=== PATIENT | male | born 1965 | race Caucasian/White ===

== ENCOUNTER 2022-12-16 12:54 | Inpatient (IN) ==
[2022-12-16] MEDS ORDERED: FAMOTIDINE 20MG IV PUSH 20 MG/5 ML SYR IV STA (12:58)
[2022-12-16] MEDS ORDERED: diphenhydrAMINE 50 MG/ML VIAL IV STA (12:58)
[2022-12-16] MEDS ORDERED: dexAMETHasone**PF** 10 MG/ML VIAL IV ONE (12:58)
[2022-12-16] MEDS ORDERED: SODIUM CHLORIDE 0.9% 1000ML 1,000 ML IV SCH ×2 (13:00→16:45)
[2022-12-16] MEDS ORDERED: SODIUM CHLORIDE 0.9% 1000ML 1,000 ML IV ONE ×2 (13:22→14:24)
--- NOTE | 2022-12-16 13:26 | Emergency Department Note ---
Impression & Plan Anaphylaxis, NOLBERTO (acute kidney injury), Acute hypotension ED Provider Note NAME: BRITTANY GOLDMAN AGE: 57 SEX: M : 1965 ARRIVES VIA: Ambulance INFORMANT: Patient, EMS ED PROVIDER(S): Jerome Mckeon DO CHIEF COMPLAINT: Allergic reaction HPI: The patient is a 57-year-old male who presented to the emergency department for an evaluation of allergic reaction. The patient started a new medication for diabetes last evening. He states he started noticing a rash over his body since last evening. The patient started having worsening symptoms while he was at [employer]. He went to the tent and was given Benadry l. The patient arrived via ambulance. Paramedics did give the patient IV epinephrine prior to arrival for hypotension. The patient states he is very dizzy and lightheaded. The rash is starting to improve at this time. He was also given Benadryl. The patient denies having any headache. He denies having any abdominal pain or vomiting. He denies having any other new foods or new medications. ROS: See above HPI for pertinent positives & negatives. A total of 10 systems reviewed and were otherwise negative. PAST MEDICAL HISTORY: See Below PAST SURGICAL HISTORY: See Below FAMILY HISTORY: See Below SOCIAL HISTORY: See Below HOME MEDICATIONS: See Below ALLERGIES: See Below VITALS: See Below PHYSICAL EXAMINATION: GENERAL: The patient is awake and alert. The patient is somewhat anxious appearing. EYES: The conjunctivae are clear. The pupils are round and reactive. EARS, NOSE, MOUTH AND THROAT: The nose is without any evidence of any deformity. NECK: The neck is nontender and supple. RESPIRATORY: Normal respiratory effort is noted there is no evidence of wheezing rhonchi or rales CARDIOVASCULAR: Regular rate and rhythm noted there no murmurs rubs or gallops normal S1 normal S2. GASTROINTESTINAL: The abdomen is soft. Abdomen is nontender. MUSCULOSKELETAL/EXTREMITIES: There is no evidence of gross deformity full range of motion is noted in the hips and shoulders. SKIN: There is diffuse urticaria noted over the trunk as well as extremities. It blanches easily. NEUROLOGIC: Patient is awake alert and oriented x3 strength is symmetric patellar reflexes are 2+ bilaterally MEDICAL DECISION MAKING: The patient is a 57-year-old male who presented to the emergency department for an evaluation of allergic reaction and anaphylactic type symptoms. The patient started having urticaria last evening. He thought it was secondary to a new diabetes medication he was started on. The patient started having worsening symptoms of dizziness while he was at an outdoor event. 911 was called. The patient received medication for allergic reaction prior to arrival. The patient received epinephrine prior to arrival because of hypotension. I discussed the patient's laboratory and radiographic studies with him. He was found to have a very significant elevation in his creatinine. He states his baseline is usually much lower. The patient was treated with another dose of epinephrine here but also further IV fluid resuscitation. [facility] the [facility] T[facility] Nursing notes reviewed. Prior medical records reviewed Vital Signs: reviewed and remarkable for hypotension. Differential diagnosis: Allergic reaction, anaphylaxis, urticaria, Gunn-Pasquale syndrome, toxic epidermal necrolysis, erythema multiforme, contact dermatitis, cellulitis, as well as other pathologies. ER treatment provided: See below Diagnostics interpreted by me: ECG: EKG was obtained in the emergency department. My interpretation is normal sinus rhythm at 94 bpm. There was no ectopy. There is no acute ST segment abnormalities noted. This was compared to a tracing from January 22, 2001. No specific changes were noted. Cardiac Monitoring: An order was placed for continuous cardiac monitoring. The monitor shows a rate of 94 bpm with sinus rhythm. Laboratory studies: As stated above and show below. Imaging studies: See below. Radiographic imaging was reviewed by myself Consultation(s): I discussed this case with Dayna who is [facility] ED COURSE: Procedures: none Critical Care: I have personally spent greater than 35 minutes of critical care time in the direct management of this patient. This includes bedside care, interpretation of diagnostic studies, and testing, discussion with consultants, patient, and family members, and other required patient management activities. This 35 minutes is in excess of all separately billable procedures. Past Med/Surg History Medical History Diabetes High cholesterol Hypertension Social History Smoking Status: Never smoker Feels Safe at Home: Yes Allergies Allergies Allergy/AdvReac Type Severity Reaction Status Date / Time No Known Allergies Allergy Unverified 01/30/11 19:10 Home Meds Home Medications Medication Instructions Recorded Confirmed Aspirin (Aspirin Tab-Chewable *) 81 mg PO DAILY ##1 06/02/10 Atorvastatin (Lipitor Unknown Dose) 40 mg PO DAILY ##1 06/02/10 Metoprolol Tartrate (Lopressor 25 mg PO BID ##1 06/02/10 Unknown Dose) Metformin HCL (Glucophage *) 1,000 mg PO BID ##0 01/30/11 Results & Data (ED) Vital Signs Vital Signs - 24 hr 12/16/22 13:02 12/16/22 13:03 12/16/22 13:03 Temperature 36.6 C Temperature Source Oral Pulse Rate 101 H 94 H Pulse Rate [Apical] Pulse Rhythm Regular Pulse Rhythm [Apical] Pulse Strength Normal Respiratory Rate 29 H Respiratory Effort / Characteristics Non-Labored Respiratory Depth Normal Respiratory Pattern Regular Blood Pressure 67/42 L Blood Pressure [Right Arm] Blood Pressure Mean 50 Blood Pressure Mean [Right Arm] Pulse Oximetry 99 98 Oxygen Delivery Method Room Air Room Air Sepsis Recent Fever Within 48 Hours No Sepsis New/Unexplained Change in Mental Status N/A Sepsis Action Taken by Nursing No Action Required 12/16/22 13:03 12/16/22 13:44 12/16/22 13:52 Temperature Temperature Source Pulse Rate 97 H Pulse Rate [Apical] 94 H 94 H Pulse Rhythm Pulse Rhythm [Apical] Pulse Strength Respiratory Rate 29 H 18 18 Respiratory Effort / Characteristics Non-Labored Non-Labored Respiratory Depth Normal Normal Respiratory Pattern Regular Regular Blood Pressure Blood Pressure [Right Arm] 72/44 L 73/46 L Blood Pressure Mean Blood Pressure Mean [Right Arm] 53 55 Pulse Oximetry 98 98 99 Oxygen Delivery Method Room Air Room Air Room Air Sepsis Recent Fever Within 48 Hours Sepsis New/Unexplained Change in Mental Status Sepsis Action Taken by Nursing 12/16/22 14:11 12/16/22 14:41 Temperature Temperature Source Pulse Rate Pulse Rate [Apical] 94 H 93 H Pulse Rhythm Pulse Rhythm [Apical] Regular Pulse Strength Respiratory Rate 18 18 Respiratory Effort / Characteristics Non-Labored Spontaneous Respiratory Depth Normal Respiratory Pattern Regular Blood Pressure Blood Pressure [Right Arm] 83/48 L 68/52 L Blood Pressure Mean Blood Pressure Mean [Right Arm] 59 57 Pulse Oximetry 98 97 Oxygen Delivery Method Room Air Room Air Sepsis Recent Fever Within 48 Hours Sepsis New/Unexplained Change in Mental Status Sepsis Action Taken by [facility] Medications Current Medication List: was personally reviewed by me Laboratory Data Attestation: I reviewed the patient's lab results. 12/16/22 13:22 12/16/22 13:22 Lab Results 12/16/22 12/16/22 Range/Units 13:22 13:22 WBC 17.12 H (4.8-10.8) K/ul RBC 5.02 (4.70-6.10) M/uL Hgb 15.5 (14.0-18.0) g/dl Hct 45.4 (42.0-52.0) % MCV 90.4 (80.0-100.0) fL MCH 30.9 (25.0-34.0) pg MCHC 34.1 (32.0-36.0) g/dL RDW Std Deviation 42.0 (36.4-46.3) fL RDW Coeff of Christiano 13.0 (11.5-14.5) % Plt Count 257 (130-400) K/uL MPV 11.9 (9.4-12.4) fL Immature Gran % (Auto) 0.6 % Neut % (Auto) 82.4 % Lymph % (Auto) 11.1 % [place] % (Auto) 4.6 % Eos % (Auto) 1.1 % Baso % (Auto) 0.2 % Neut # (Auto) 14.11 H (1.40-6.50) K/uL Lymph # (Auto) 1.90 (1.2-3.4) K/uL [place] # (Auto) 0.78 H (0.11-0.59) K/uL Eos # (Auto) 0.19 (0-0.50) K/uL Baso # (Auto) 0.03 (0-0.2) K/uL Immature Gran # (Auto) 0.11 (0.01-0.20) K/uL Sodium 136 (136-145) mmol/L Potassium 5.2 H (3.5-5.1) mmol/L Chloride 104 (98-107) mmol/L Carbon Dioxide 19 L (21-32) mmol/L Anion Gap 13 H (3-11) BUN 56 H (6-23) mg/dl Creatinine 2.95 H (0.6-1.4) mg/dl Est Cr Clr Drug Dosing 32.2 ml/min Est GFR ( Amer) 26.2 ml/min Est GFR (Non-Af Amer) 22.6 ml/min BUN/Creatinine Ratio 19.0 (10-20) Glucose 333 H* (70-99(Fasting)) mg/dl Calcium 9.3 (8.6-10.3) mg/dl Total Bilirubin 1.0 (0.2-1.0) mg/dl AST 17 (13-39) U/L ALT 19 (7-52) U/L Alkaline Phosphatase 53 (34-104) U/L Troponin I High Sens 6.2 (0-20) pg/ml Total Protein 6.7 (6.0-8.3) gm/dl Albumin 4.1 (3.4-5.0) gm/dl Globulin 2.6 (2.5-4.0) gm/dl Albumin/Globulin Ratio 1.6 (0.9-2) Administered Medications Sodium Chloride (Nss 1000ml) 1,000 mls @ 999 mls/hr IV .Q1H1M ONE Stop: 12/16/22 15:24 Last Admin: 12/16/22 14:31 Dose: 999 mls/hr Documented By: ANGIE Discontinued Medications Dexamethasone Sodium Phosphate (DexamethasonePf 10 Mg/Ml Vial) 10 mg IV NOW ONE Stop: 12/16/22 12:59 Last Admin: 12/16/22 13:08 Dose: 10 mg Documented By: ANGIE Diphenhydramine HCl (Diphenhydramine 50 Mg/Ml Vial) 25 mg IV NOW STA Stop: 12/16/22 12:59 Last Admin: 12/16/22 13:08 Dose: 25 mg Documented By: ANGIE Epinephrine HCl (Epinephrine Inj 1 Mg/Ml Amp) 0.3 mg IM NOW STA Stop: 12/16/22 13:45 Last Admin: 12/16/22 13:47 Dose: 0.3 mg Documented By: HNB Sodium Chloride (Nss 1000ml) 1,000 mls @ 999 mls/hr IV .Q1H1M [place]ACE Stop: 12/16/22 14:00 Last Infusion: 12/16/22 14:30 Dose: 0 mls/hr Documented By: Admin: 12/16/22 13:08 Dose: 999 mls/hr Documented By: ANGIE Famotidine (Pepcid 20mg Iv Push) 20 mg in 5 mls @ 2.5 mls/min IV NOW STA Stop: 12/16/22 12:59 Last Admin: 12/16/22 13:08 Dose: 2.5 mls/min Documented By: ANGIE Sodium Chloride (Nss 1000ml) 1,000 mls @ 999 mls/hr IV .Q1H1M ONE Stop: 12/16/22 14:22 Last Infusion: 12/16/22 14:30 Dose: 0 mls/hr Documented By: Admin: 12/16/22 13:29 Dose: 999 mls/hr Documented By: ANGIE Imaging Data Attestation: I personally reviewed and interpreted this imaging study as follows: My Impression: 1 view chest x-ray was obtained in the emergency department. My interpretation is no free air or definite infiltrate, final report below. Radiologist's Impression: Chest X-Ray 12/16/22 12:58 SINGLE VIEW CHEST CLINICAL HISTORY: Allergic reaction. FINDINGS: 2 AP, portable, upright chest radiographs are compared to study dated 05/30/2010. The cardiomediastinal silhouette is unremarkable. The lungs and pleu ral spaces are clear. No pneumothorax is seen. The bony thorax is grossly intact. IMPRESSION: No active disease in the chest. ACT 112: Negative or not required by law. Electronically signed by: Mohsen Fernandes M.D. 12/16/2022 2:11 PM Discharge Plan Visit Data Chief Complaint: Allergic Reaction Stated Complaint: ALLERGIC REACTION ED Provider: Jerome Mckeon Discharge Problem: Anaphylaxis, NOLBERTO (acute kidney injury), Acute hypotension Patient Disposition: Being Evaluated by Hospitalist Forms Stand Alone Forms: My [facility] [employer] Prescriptions Prescriptions: No Action Aspirin (Aspirin Tab-Chewable *) 81 MG CHEWABLE TAB 81 mg PO DAILY Qty: 1 Atorvastatin (Lipitor Unknown Dose) tablet 40 mg PO DAILY Qty: 1 Metoprolol Tartrate (Lopressor Unknown Dose) tablet 25 mg PO BID Qty: 1 Metformin HCL (Glucophage *) 1,000 MG tablet 1,000 mg PO BID Qty: 0 Referrals Referrals: Jey Rowley MD [Hospitalist] - Anaphylaxis Qualifiers: Encounter type: initial encounter Qualified Code(s): T78.2XXA - Anaphylactic shock, unspecified, initial encounter
[2022-12-16] MEDS ORDERED: EPINEPHrine INJ 1 MG/ML AMP IM STA (13:44)
[2022-12-16 13:55] LABS: Basophils # (auto) 0.03 K/uL (0-0.2); Basophils % (auto) 0.2 %; Eosinophils # (auto) 0.19 K/uL (0-0.50); Eosinophils % (auto) 1.1 %; Hematocrit (blood only) 45.4 % (42.0-52.0); Hemoglobin 15.5 g/dl (14.0-18.0); Immature Granulocytes # (auto) 0.11 K/uL (0.01-0.20); Immature Granulocytes % (auto) 0.6 %; Lymphocytes % (auto) 11.1 %; Mean Corpuscular Hemoglobin 30.9 pg (25.0-34.0); Mean Corpuscular Hgb Conc 34.1 g/dL (32.0-36.0); Mean Corpuscular Volume 90.4 fL (80.0-100.0); Mean Platelet Volume 11.9 fL (9.4-12.4); Monocytes # (auto) 0.78 K/uL (0.11-0.59); Monocytes % (auto) 4.6 %; Neutrophils # (auto) 14.11 K/uL (1.40-6.50); Neutrophils % (auto) 82.4 %; Platelet Count 257 K/uL (130-400); Red Blood Count 5.02 M/uL (4.70-6.10); White Blood Count 17.12 K/ul (4.8-10.8)
--- NOTE | 2022-12-16 14:13 | XRay Report ---
SINGLE VIEW CHEST CLINICAL HISTORY: Allergic reaction. FINDINGS: 2 AP, portable, upright chest radiographs are compared to study dated 05/30/2010. The cardio mediastinal silhouette is unremarkable. The lungs and pleural spaces are clear. No pneumothorax is se en. The bony thorax is grossly intact. IMPRESSION: No active disease in the chest. ACT 112: Negative or not required by law. Electronically signed by: Mohsen Fernandes M.D. 12/16/2022 2:11 PM
[2022-12-16 14:18] LABS: Albumin Globulin Ratio 1.6 (0.9-2); Albumin Level 4.1 gm/dl (3.4-5.0); Calcium 9.3 mg/dl (8.6-10.3); Creatinine Clr Calc Pharmacy 32.2 ml/min; Est GFR (African American) 26.2 ml/min; Est GFR (Non-African American) 22.6 ml/min; Globulin 2.6 gm/dl (2.5-4.0); Potassium 5.2 mmol/L (3.5-5.1); Total Protein 6.7 gm/dl (6.0-8.3); Troponin I High Sensitivity 6.2 pg/ml (0-20)
--- NOTE | 2022-12-16 14:21 | Electrocardiogram Report ---
Test Reason : Blood Pressure : / mmHG Vent. Rate : 094 BPM Atrial Rate : 094 BPM P-R Int : 162 ms QRS Dur : 068 ms QT Int : 350 ms P-R-T Axes : 066 063 059 degrees QTc Int : 437 ms Normal sinus rhythm Low voltage QRS Abnormal ECG When compared with ECG of 22-JAN-2001 12:18, Nonspecific T wave abnormality no longer evident in Inferior leads Confirmed by Michael Dean ([id number]) on 12/16/2022 2:21:00 PM Referred By: Confirmed By:Qasim Dean
--- NOTE | 2022-12-16 14:57 | History & Physical Report ---
Date of Service December 16, 2022 Assessment & Plan (1) Anaphylaxis: Plan: Patient is 57 y/o M with PMH HTN, dyslipidemia, DM II, BLE edema, hypothyroidism presented to ER with c/o hives started last night after taking first dose of Mounjaro yesterday. No SOB or angioedema Dizzy, diaphoretic pre-hospital and was given IV Benadryl, IV epinephrine. Upon ER arrival patient noted to have diffuse urticaria and was hypotensive. Was given epinephrine 0.3mg IM, 25mg IV Benadryl, IV Pepcid, IV decadron, 3L NSS. SBPs from 60's up to 80's. Pulse in 90's. No hypoxia, no wheezing. Urticaria resolving Anaphylaxis reaction secondary to Mounjaro Allergy list updated with Mounjaro No further Mounjaro Patient's BP's remain low in ER after fluid resuscitation with 3L NSS. Patient asymptomatic and mentating well. Additional IM epinephrine given Admit ICU for further management Hold home lisinopril and Lasix as hypotensive and with NOLBERTO Lab informed initial lactic acid error, will have redrawn and follow (2) NOLBERTO (acute kidney injury): Plan: Cr: 2.9. Was 1.4 on 12/11/22 after holding metformin, Jardiance, Lasix for one week. Cr: 2.1 on 12/02/22 with prior baseline of 1.0. Hold lisinopril, Lasix, home glycemic agents BMP in am Nephrology consult (3) Neck pain: Plan: Posterior neck pain x 1-2 months Consider imaging when patient more stable (4) Diabetes mellitus, type II: Plan: A1c: 8.1 on 12/02/22 Glucose: 333 Hold home meds Glycemic management per ICU. May need to consider insulin drip (5) High cholesterol: Plan: On atorvastatin (6) Hypertension: Plan: Currently hypotensive Hold home lisinopril (7) Leg edema: Plan: Hold home lasix with hypotension and NOLBERTO (8) Hypothyroidism: Plan: On levothyroxine admit ICU Full Code as per discussion with pt Follows with Dr Regina Marshall for routine care Pt was seen and care coordinated with Dr Tracy. See addendum I spent a total of 85 minutes reviewing notes, outpatient records, labs, medication, coordinating, documenting and providing care for this patient excluding time spent in the performance of separately billed services. History of Present Illness Chief Complaint: hives Primary Care Provider: Regina Marshall DO Patient is 57 y/o M with PMH HTN, dyslipidemia, DM II, BLE edema, hypothyroidism presented to ER with c/o hives. History obtained from patient as well as outpatient chart review. Patient has been on Ozempic since 02/2023 however reports that pharmacy was unable to get medication in stock so he was started on Mounjaro. Took first dose of Mounjaro last evening. States around midnight started with diffuse pruritus and hives. He states took 50mg Benadryl orally. This morning still had hives and itching. This morning he went to . States as was travelling to [place] noticed increased hives. Reports that once arrived he went to first aid tent and was given 50mg Benadryl orally. Patient states started to walk around and became diaphoretic and dizzy. EMS was called. EMS reported BP: 67/42. It is reported patient was given 50mg IV Benadryl, IV epinephrine and IVF. Upon ER arrival patient noted to have diffuse urticaria and was hypotensive. Was given epinephrine 0.3mg IM, 25mg IV Benadryl, 3L NSS. SBPs from 60's up to 80's. Patient denies any wheezing, SOB, chest pain, nausea, vomiting, abdominal pain, edema of lips or tongue, dysphagia. Patient also concerned about posterior neck pain for past 1-2 months. Has been taking Tylenol daily for 1 month for pain with limited relief. Denies heavy lifting or injury. reports chronic BLE edema for which he is on Lasix. Patient denies any increased edema. He had outpatient labs 12/02/22 and had creatinine of 2.1. His metformin, Jardiance, Lasix were held for one week. Patient reports resumed medications on 12/12/22. Outpatient chart reviewed and 12/11/22 Cr: 1.4. Denies fev er/chills, diarrhea, constipation, DIETRICH, syncope, vision changes, orthopnea, palpitations, cough, sore throat, choking, otalgia, rhinorrhea, abdominal pain, paresthesias, extremity weakness, rashes, urinary symptoms. Allergies Allergy/AdvReac Type Severity Reaction Status Date / Time tirzepatide [From Selena] Allergy Severe Anaphylaxis Verified 12/16/22 16:06 Home Medications Medication Instructions Recorded Confirmed Type aspirin 81 mg tablet,delayed 81 mg PO DAILY 12/16/22 12/16/22 History release atorvastatin 40 mg tablet 40 mg PO PM 12/16/22 12/16/22 History empagliflozin 25 mg tablet 25 mg PO DAILY 12/16/22 12/16/22 History (Jardiance) furosemide 40 mg tablet 40 mg PO BID 12/16/22 12/16/22 History glyburide 5 mg tablet 10 mg PO BIDM 12/16/22 12/16/22 History levothyroxine 100 mcg tablet 100 mcg PO DAILY 12/16/22 12/16/22 History lisinopril 20 mg tablet 20 mg PO DAILY 12/16/22 12/16/22 History metformin 1,000 mg tablet 1,000 mg PO BID 12/16/22 12/16/22 History potassium chloride 20 mEq 20 meq PO DAILY 12/16/22 12/16/22 History tablet,extended release(part/cryst) repaglinide 2 mg tablet 4 mg PO TIDM 12/16/22 12/16/22 History tirzepatide 12.5 mg/0.5 mL 12.5 mg subcut WK 12/16/22 12/16/22 History subcutaneous pen injector (Selena) Past Med/Surg History Medical History Diabetes Diabetes mellitus, type II High cholesterol Hypertension Hypothyroidism Leg edema Surgical History History of cardiac catheterization History of esophagogastroduodenoscopy History of tonsillectomy and adenoidectomy History of umbilical hernia repair Family History Other Diabetes Heart disease Social History Smoking Status: Never smoker Hx Alcohol Use: No Hx Substance Use: No Preferred Language: Samoan 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 Beliefs That Will Affect Care: None Current Living Situation: Alone Feels Safe at Home: Yes Review of Systems Review of Systems: All systems reviewed & are unremarkable except as noted in HPI & below Physical Exam Physical Exam: General: no acute distress, WDWN Head: normocephalic, atraumatic Eyes: conjunctiva non-injected, anicteric ENT: normal inspection external ears, nose, mucous membranes moist Neck: supple, trachea midline, +tenderness to palpation bilateral trapezius musculature, +decreased active ROM to lateral bending and flexion and extension Lungs: clear, no respiratory distress, no wheezing/rhonchi/rales CV: RRR, no murmur, no pretibial edema Abd: normal BS, soft, non-tender Ext: no cyanosis, no calf tenderness Neuro: A&O x 3, no focal deficits noted, normal affect Skin: warm, dry, +fading urticaria noted to back, abdomen, bilateral upper and lower extremities Results & Data Results & Data Vital Signs (Past 12 Hours) Vital Signs Temp Pulse Pulse Resp BP BP Pulse Ox 12/16/22 14:41 93 H 18 68/52 L 97 12/16/22 14:11 94 H 18 83/48 L 98 12/16/22 13:52 94 H 18 73/46 L 99 12/16/22 13:44 94 H 18 72/44 L 98 12/16/22 13:03 97 H 29 H 98 12/16/22 13:03 98 12/16/22 13:03 36.6 C 94 H 29 H 67/42 L 99 12/16/22 13:02 101 H O2 Del Method 12/16/22 14:41 Room Air 12/16/22 14:11 Room Air 12/16/22 13:52 Room Air 12/16/22 13:44 Room Air 12/16/22 13:03 Room Air 12/16/22 13:03 Room Air 12/16/22 13:03 Room Air 12/16/22 13:02 Laboratory Results Short CBC 12/16/22 Range/Units 13:22 WBC 17.12 H (4.8-10.8) K/ul Hgb 15.5 (14.0-18.0) g/dl Hct 45.4 (42.0-52.0) % Plt Count 257 (130-400) K/uL BMP 12/16/22 13:22 Sodium 136 Potassium 5.2 H Chloride 104 Carbon Dioxide 19 L BUN 56 H Creatinine 2.95 H Glucose 333 H* Calcium 9.3 Liver Function 12/16/22 Range/Units 13:22 Total Bilirubin 1.0 (0.2-1.0) mg/dl AST 17 (13-39) U/L ALT 19 (7-52) U/L Alkaline Phosphatase 53 (34-104) U/L Albumin 4.1 (3.4-5.0) gm/dl Urine 12/16/22 Range/Units 15:44 Urine Color Yellow Urine Appearance Clear (Clear) Urine pH 5.0 (4.5-7.5) Ur Specific [place] 1.013 (1.000-1.030) Urine Protein Negative (Negative) Urine Glucose (UA) 3+ H (Negative) Diagnostic Findings Chest X-Ray 12/16/22 12:58 SINGLE VIEW CHEST CLINICAL HISTORY: Allergic reaction. FINDINGS: 2 AP, portable, upright chest radiographs are compared to study dated 05/30/2010. The cardiomediastinal silhouette is unremarkable. The lungs and pleural spaces are clear. No pneumothorax is seen. The bony thorax is grossly intact. IMPRESSION: No active disease in the chest. ACT 112: Negative or not required by law. Electronically signed by: Mohsen Fernandes M.D. 12/16/2022 2:11 PM Supervising Physician Co-Signing Physician Notes ATTENDING ADDENDUM to H&P: 57 yo diabetic man presents with anaphylactic shock in response to starting a new GLP-1 agonist, Mounjaro, yesterday afternoon. He was previously on Ozempic for at least the past year and switched as a result of low nationwide supply. He also was counseled with worsening renal dysfunction (normal baseline creatinine 0.9 in Jul 02 to 2.1 on 12/04/22)to hold his metformin, jardiance, lasix and repeat creatinine in one week. He did this and creatinine improved to 1.4. He started his first Mounjaro injection yesterday afternoon and awoke wtih hives last night around midnight. He reports taking nothing but walking up every hour with significant itching. He then went to the local agriculture fair this morning with worsening hives on the way there. He stopped by the local first aid tent and was able to take benadryl. After waiting an hour, he felt poorly, was pale and had an episode of hypotensive syncope when EMS was called. EMS gave IV epinephrine for hypotension. The patient was reporting persistent lightheadedness, but denies wheezing or shortness of breath, throat or tongue swelling, chest or abdominal pain, vomiting or headache. In the ER he was given 3L of IVF, diphenhydramine 25mg IV, dexamethasone 10mg IV, famotidine 20mg IV and an additional intramuscular epinephrine 0.3mg injection. No h/o allergic reaction. On exam BP is 89/62 (after treatment noted above). HR 91, RR 19, oxygenating 99% on RA and afebrile. He is mentating clearly and is WNWD. He has no conversational dyspnea or wheezing on pulmonary auscultation. No other adventitial sounds present. CV exam reveals S1/2 heard without murmurs, and extremities are warm and well perfused. Skin is warm and dry with residual erythema/hives on his back>posterior legs> abdomen. He also reports persistent hives in his groin but this was not visualized. Abdomen was soft, NTND. No gross focal neuromuscular deficits were noted. On workup creatinine is 2.95 as noted above with baseline 0.9 in Jun 2022 per outpatient record review. Glucose is elevated to 333 today and he has been off metformin and Jardiance recently. A1C is 8.1 in November 29 reflecting suboptimal glucose control. Potassium has been elevated since renal function began to decline and is elevated today, 5.2. Leukocytosis is present 17K.Random cortisol is 5.5 and tryptase is pending. (NOTE: contacted by lab that the lactate and cortisol was incorrect. Decadron has already been given today. Will defer the decision to redraw these levels to ICU team.) 1. Anaphylactic shock 2/2 GLP-1 agonist 2. Acute renal failure 3. Hyperglycemia in uncontrolled DMII After resuscitation efforts in the ER today along with additional epinephrine, the patient remains hypotensive. Consulting ICU for consideration of epinephrine drip and treatment of additional worsening comorbidities. Cont IVF and supportive care. Management of hyperglycemia and acute renal failure as noted on H&P. Agree with nephrology consultation. ADDENDUM: BP updated and falling to 68/51 around 4:15pm. Came back down to see patient who was still mentating clearly, denied shortness of breath or wheezing and had no worsening itching or hives. Placed in T-noguera position and BP on bilateral arms was 72/37 (R) and 70/40 (L). I communicated this with the supervisor corduroy cutting and ER physician, as he was still in A3, and ordered repeat dose of epi 0.3mg IM. Additional 500cc bolus ordered. Monitoring for response with repeat BP 85/43 with bolus running. HR is 81 and still oxygenating 96% on room air. Contacted machine records units supervisor to assist with getting patient a bed assigned. I spent a total [id number] coordinating, documenting, and providing critical care for this patient excluding time spent in the performance of separately bill ed services. DO Demarcus (1) Anaphylaxis Encounter type: initial encounter Qualified Code(s): T78.2XXA - Anaphylactic shock, unspecified, initial encounter
[2022-12-16 15:29] LABS: C Reactive Protein 1.11 mg/dl (0-0.5)
--- NOTE | 2022-12-16 15:34 | Communication Note ---
Date of Service: December 16, 2022 ATTENDING ADDENDUM to H&P: 57 yo diabetic man presents with anaphylactic shock in response to starting a new GLP-1 agonist, Mounjaro, yesterday afternoon. He was previously on Ozempic for at least the past year and switched as a result of low nationwide supply. He also was counseled with worsening renal dysfunction (normal baseline creatinine 0.9 in Jul 02 to 2.1 on 12/04/22)to hold his metformin, jardiance, lasix and repeat creatinine in one week. He did this and creatinine improved to 1.4. He started his first Mounjaro injection yesterday afternoon and awoke wtih hives last night around midnight. He reports taking nothing but walking up every hour wiht significant itching. He then went to the local [employer] fair this morning with worsening hives on the way there. He stopped by the local first aid tent and was able to take benadryl. After waiting an hour, he felt poorly, was pale and had an episode of hypotensive syncope when EMS was called. EMS gave IV epinephrine for hypotension. The patient was reporting persistent lightheadedness, but denies wheezing or shortness of breath, throat or tongue swelling, chest or abdominal pain, vomiting or headache. In the ER he was given 3L of IVF, diphenhydramine 25mg IV, dexamethasone 10mg IV, famotidine 20mg IV and an additional intramuscular epinephrine 0.3mg injection. No h/o allergic reaction. On exam BP is 89/62 (after treatment noted above). HR 91, RR 19, oxygenating 99% on RA and afebrile. He is mentating clearly and is WNWD. He has no conversational dyspnea or wheezing on pulmonary auscultation. No other adventitial sounds present. CV exam reveals S1/2 heard without murmurs, and extremities are warm and well perfused. Skin is warm and dry with residual erythema/hives on his back>posterior legs> abdomen. He also reports persistent hives in his groin but this was not visualized. Abdomen was soft, NTND. No gross focal neuromuscular deficits were noted. On workup creatinine is 2.95 as noted above with baseline 0.9 in Jun 2022 per outpatient record review. Glucose is elevated to 333 today and he has been off metformin and Jardiance recently. A1C is 8.1 in November 29 reflecting suboptimal glucose control. Potassium has been elevated since renal function began to decline and is elevated today, 5.2. Leukocytosis is present 17K.Random cortisol is 5.5 and tryptase is pending. (NOTE: contacted by lab that the lactate and cortisol was incorrect. Decadron has already been given today. Will defer the decision to redraw these levels to ICU team.) 1. Anaphylactic shock 2/2 GLP-1 agonist 2. Acute renal failure 3. Hyperglycemia in uncontrolled DMII After resuscitation efforts in the ER today along with additional epinephrine, the patient remains hypotensive. Consulting ICU for consideration of epinephrine drip and treatment of additional worsening comorbidities. Cont IVF and supportive care. Management of hyperglycemia and acute renal failure as noted on H&P. Agree with nephrology consultation. ADDENDUM: BP updated and falling to 68/51 around 4:15pm. Came back down to see patient who was still mentating clearly, denied shortness of breath or wheezing and had no worsening itching or hives. Placed in T-noguera position and BP on bilateral arms was 72/37 (R) and 70/40 (L). I communicated this with the posting machine operator and ER physician, as he was still in A3, and ordered repeat dose of epi 0.3mg IM. Additional 500cc bolus ordered. Monitoring for response with repeat BP 85/43 with bolus running. HR is 81 and still oxygenating 96% on room air. Contacted live ammunition inspector to assist with getting patient a bed assigned. I spent a total [id number] coordinating, documenting, and providing critical care for this patient excluding time spent in the performance of separately billed services. DO Demarcus
[2022-12-16 16:21] LABS: Appearance Urine Clear (Clear); Bilirubin Urine Negative (Negative); Blood Urine Negative (Negative); Color Urine Yellow; Glucose Urine UA 3+ (Negative); Ketones Urine Negative (Negative); Leukocyte Esterase Urine Negative (Negative); Nitrite Urine Negative (Negative); Protein Urine Negative (Negative); Specific Gravity Urine 1.013 (1.000-1.030); Urobilinogen Urine Negative (Negative)
[2022-12-16] MEDS ORDERED: DEXTROSE 50% 50 ML SYRINGE IV PRN (16:29)
[2022-12-16] MEDS ORDERED: GLUCOSE 10 TAB/TUBE PO PRN (16:29)
[2022-12-16] MEDS ORDERED: CARBOHYDRATES FOR HYPOGLYCEMIA PO PRN (16:29)
[2022-12-16] MEDS ORDERED: GLUCAGON FOR INJ 1 MG VIAL SQ PRN (16:29)
[2022-12-16] MEDS ORDERED: GLUCOSE 40% GEL 15 GM TUBE PO PRN (16:29)
[2022-12-16] MEDS ORDERED: SODIUM CHLORIDE 0.9% 1000ML 2,000 ML IV ONE (16:31)
--- NOTE | 2022-12-16 16:31 | Critical Care Consultation ---
Date of Consultation December 16, 2022 Assessment & Plan (1) Anaphylaxis: (2) NOLBERTO (acute kidney injury): (3) Hyperkalemia: Plan Impression: 57-year-old male with diabetes presenting with potential anaphylactic reaction. The itching and hives have resolved however he has acute kidney injury and low blood pressure. Recommendations: 1. Anaphylactoid reaction: Continue as needed IM epinephrine. If this fails to resolve his blood pressure issues, consideration for an epinephrine infusion may be appropriate however the patient is relatively asymptomatic and not tachycardic at this point in time. 2. Acute kidney injury: Suspect a degree of volume depletion. His elevated blood glucose would also argue for potential volume depletion and potential element of hyperosmolar nonketotic state. Continue aggressive IV fluids with normal saline. Repeat BMP later this afternoon given his hyperkalemia. 3. Diabetes: The patient may have a component of DKA versus hyperosmolar nonketotic state. Will check blood gas. Patient may benefit from a short-term insulin infusion especially given his hyperkalemia. 4. Patient has a history of hypertension and using lisinopril in the setting of acute renal failure may be exacerbating these issues. His metformin may also be causing some degree of lactic acidosis. Will check serum lactate. Continue his Synthroid but will hold additional diuretics. Patient's overall condition is guarded. Will see how he responds to the above i nterventions. Additional recommendations will be based on clinical response. A total of 45 min CC time evaluating and managing patient. History of Present Illness History of Present Illness Asked by hospitalist to assist in evaluation and management of this patient with presumed anaphylactic reaction to Mounjaro and persistent hypotension. History is obtained from discussion with the patient as well as review electronic medical record. Patient is a 57-year-old male with a history of diabetes. He states he started Mounjaro yesterday and developed hives last night. He took Benadryl yesterday evening. He was given additional Benadryl this morning. He became diaphoretic and dizzy and EMS reported low blood pressure. He was brought to the emergency room and was given IM epinephrine and Benadryl and saline. He was noted to have a mild acute kidney injury. He denies fevers chills or night sweats. He states the rash has improved and he is no longer itching. He is not having any issues with swallowing chewing or sores in his mouth. He did receive 1 dose of dexamethasone in the emergency room and has had a total of 3 L of crystalloid. He does not report a prior history of allergic reactions that he is aware of. Allergies Allergy/AdvReac Type Severity Reaction Status Date / Time tirzepatide [From Selena] Allergy Severe Anaphylaxis Verified 12/16/22 16:06 Home Medications Medication Instructions Recorded Confirmed Type aspirin 81 mg tablet,delayed 81 mg PO DAILY 12/16/22 12/16/22 History release atorvastatin 40 mg tablet 40 mg PO PM 12/16/22 12/16/22 History empagliflozin 25 mg tablet 25 mg PO DAILY 12/16/22 12/16/22 History (Jardiance) furosemide 40 mg tablet 40 mg PO BID 12/16/22 12/16/22 History glyburide 5 mg tablet 10 mg PO BIDM 12/16/22 12/16/22 History levothyroxine 100 mcg tablet 100 mcg PO DAILY 12/16/22 12/16/22 History lisinopril 20 mg tablet 20 mg PO DAILY 12/16/22 12/16/22 History metformin 1,000 mg tablet 1,000 mg PO BID 12/16/22 12/16/22 History potassium chloride 20 mEq 20 meq PO DAILY 12/16/22 12/16/22 History tablet,extended release(part/cryst) repaglinide 2 mg tablet 4 mg PO TIDM 12/16/22 12/16/22 History tirzepatide 12.5 mg/0.5 mL 12.5 mg subcut WK 12/16/22 12/16/22 History subcutaneous pen injector (Selena) Patient History Medical History Diabetes High cholesterol Hypertension Social History Smoking Status: Never smoker Feels Safe at Home: Yes Review of Systems Review of Systems: Please refer to admission H&P. No additions or deletions Physical Exam Constitutional: WD/WN, vitals as above Neck: trachea midline, no thyromegaly Respiratory: normal respiratory effort, lungs clear to auscultation Cardiovascular: RRR, no murmur, no edema Gastrointestinal (Abdomen): normal bowel sounds, soft, nontender, no hepa tosplenomegaly Musculoskeletal: Extremities: extremities normal to inspection Skin: no rashes, warm and dry Neurologic: Nonfocal exam Lymphatic: no cervical lymphadenopathy Results & Data Results & Data Vital Signs (Past 12 Hours) Vital Signs Temp Pulse Pulse Resp BP BP Pulse Ox 12/16/22 16:15 97 H 17 12/16/22 16:15 68/51 L 12/16/22 16:10 96 H 12 12/16/22 16:10 82/48 L 12/16/22 16:05 91 H 20 12/16/22 16:05 79/47 L 12/16/22 16:00 93 H 15 12/16/22 16:00 81/50 L 12/16/22 15:55 94 H 12 12/16/22 15:55 83/49 L 12/16/22 15:50 90 14 12/16/22 15:50 83/57 L 12/16/22 15:45 91 H 13 12/16/22 15:45 74/53 L 12/16/22 15:44 91 H 19 12/16/22 15:44 89/54 L 12/16/22 15:35 94 H 12 99 12/16/22 15:35 92/51 L 12/16/22 15:30 95 H 18 12/16/22 15:30 89/54 L 12/16/22 15:25 90 14 99 12/16/22 15:25 94/66 L 12/16/22 15:20 90 12 99 12/16/22 15:20 84/62 L 12/16/22 15:15 91 H 16 93 12/16/22 15:15 87/57 L 12/16/22 15:10 92 H 14 99 12/16/22 15:10 92/64 L 12/16/22 15:06 91 H 19 99 12/16/22 15:06 89/62 L 12/16/22 15:03 98 H 20 12/16/22 15:03 86/61 L 12/16/22 15:00 94 H 13 99 12/16/22 15:00 96/81 L 12/16/22 14:55 95 H 25 H 99 12/16/22 14:55 85/37 L 12/16/22 14:50 81/49 L 12/16/22 14:50 95 H 3 L 96 12/16/22 14:45 95 H 4 L 93 12/16/22 14:45 81/45 L 12/16/22 14:41 92 H 15 94 12/16/22 14:41 68/52 L 12/16/22 14:30 96 H 17 99 12/16/22 14:30 67/46 L 12/16/22 14:25 97 H 18 98 12/16/22 14:25 71/42 L 12/16/22 14:20 96 H 7 L 99 12/16/22 14:20 77/42 L 12/16/22 14:15 97 H 4 L 98 12/16/22 14:15 80/49 L 12/16/22 14:10 83/48 L 12/16/22 14:10 96 H 7 L 99 12/16/22 14:05 95 H 12 99 12/16/22 14:05 79/44 L 12/16/22 14:00 94 H 17 12/16/22 14:00 72/45 L 12/16/22 13:55 93 H 9 L 99 12/16/22 13:55 75/45 L 12/16/22 13:52 73/46 L 12/16/22 13:52 94 H 17 99 12/16/22 13:47 91 H 18 12/16/22 13:47 75/35 L 12/16/22 13:45 95 H 23 12/16/22 13:40 72/44 L 12/16/22 13:40 94 H 20 12/16/22 13:35 94 H 16 97 12/16/22 13:35 77/40 L 12/16/22 13:30 98 H 23 99 12/16/22 13:30 71/45 L 12/16/22 13:25 99 H 23 99 12/16/22 13:25 84/45 L 12/16/22 13:20 98 H 16 100 12/16/22 13:20 76/46 L 12/16/22 13:15 98 H 19 99 12/16/22 13:15 75/48 L 12/16/22 13:10 68/43 L 12/16/22 13:10 98 H 23 98 12/16/22 13:05 97 H 22 99 12/16/22 13:05 77/46 L 12/16/22 13:01 95 H 20 12/16/22 13:01 67/42 L 12/16/22 14:41 93 H 18 68/52 L 97 12/16/22 14:11 94 H 18 83/48 L 98 12/16/22 13:52 94 H 18 73/46 L 99 12/16/22 13:44 94 H 18 72/44 L 98 12/16/22 13:03 97 H 29 H 98 12/16/22 13:03 98 12/16/22 13:03 36.6 C 94 H 29 H 67/42 L 99 12/16/22 13:02 101 H O2 Del Method 12/16/22 16:15 12/16/22 16:15 12/16/22 16:10 12/16/22 16:10 12/16/22 16:05 12/16/22 16:05 12/16/22 16:00 12/16/22 16:00 12/16/22 15:55 12/16/22 15:55 12/16/22 15:50 12/16/22 15:50 12/16/22 15:45 12/16/22 15:45 12/16/22 15:44 12/16/22 15:44 12/16/22 15:35 12/16/22 15:35 12/16/22 15:30 12/16/22 15:30 12/16/22 15:25 12/16/22 15:25 12/16/22 15:20 12/16/22 15:20 12/16/22 15:15 12/16/22 15:15 12/16/22 15:10 12/16/22 15:10 12/16/22 15:06 12/16/22 15:06 12/16/22 15:03 12/16/22 15:03 12/16/22 15:00 12/16/22 15:00 12/16/22 14:55 12/16/22 14:55 12/16/22 14:50 12/16/22 14:50 12/16/22 14:45 12/16/22 14:45 12/16/22 14:41 12/16/22 14:41 12/16/22 14:30 12/16/22 14:30 12/16/22 14:25 12/16/22 14:25 12/16/22 14:20 12/16/22 14:20 12/16/22 14:15 12/16/22 14:15 12/16/22 14:10 12/16/22 14:10 12/16/22 14:05 12/16/22 14:05 12/16/22 14:00 12/16/22 14:00 12/16/22 13:55 12/16/22 13:55 12/16/22 13:52 12/16/22 13:52 12/16/22 13:47 12/16/22 13:47 12/16/22 13:45 12/16/22 13:40 12/16/22 13:40 12/16/22 13:35 12/16/22 13:35 12/16/22 13:30 12/16/22 13:30 12/16/22 13:25 12/16/22 13:25 12/16/22 13:20 12/16/22 13:20 12/16/22 13:15 12/16/22 13:15 12/16/22 13:10 12/16/22 13:10 12/16/22 13:05 12/16/22 13:05 12/16/22 13:01 12/16/22 13:01 12/16/22 14:41 Room Air 12/16/22 14:11 Room Air 12/16/22 13:52 Room Air 12/16/22 13:44 Room Air 12/16/22 13:03 Room Air 12/16/22 13:03 Room Air 12/16/22 13:03 Room Air 12/16/22 13:02 Critical Care Results & Data Vital Signs (Past 12 Hours) Vital Signs Temp Pulse Pulse Resp BP BP Pulse Ox 12/16/22 16:15 97 H 17 12/16/22 16:15 68/51 L 12/16/22 16:10 96 H 12 12/16/22 16:10 82/48 L 12/16/22 16:05 91 H 20 12/16/22 16:05 79/47 L 12/16/22 16:00 93 H 15 12/16/22 16:00 81/50 L 12/16/22 15:55 94 H 12 12/16/22 15:55 83/49 L 12/16/22 15:50 90 14 12/16/22 15:50 83/57 L 12/16/22 15:45 91 H 13 12/16/22 15:45 74/53 L 12/16/22 15:44 91 H 19 12/16/22 15:44 89/54 L 12/16/22 15:35 94 H 12 99 12/16/22 15:35 92/51 L 12/16/22 15:30 95 H 18 12/16/22 15:30 89/54 L 12/16/22 15:25 90 14 99 12/16/22 15:25 94/66 L 12/16/22 15:20 90 12 99 12/16/22 15:20 84/62 L 12/16/22 15:15 91 H 16 93 12/16/22 15:15 87/57 L 12/16/22 15:10 92 H 14 99 12/16/22 15:10 92/64 L 12/16/22 15:06 91 H 19 99 12/16/22 15:06 89/62 L 12/16/22 15:03 98 H 20 12/16/22 15:03 86/61 L 12/16/22 15:00 94 H 13 99 12/16/22 15:00 96/81 L 12/16/22 14:55 95 H 25 H 99 12/16/22 14:55 85/37 L 12/16/22 14:50 81/49 L 12/16/22 14:50 95 H 3 L 96 12/16/22 14:45 95 H 4 L 93 12/16/22 14:45 81/45 L 12/16/22 14:41 92 H 15 94 12/16/22 14:41 68/52 L 12/16/22 14:30 96 H 17 99 12/16/22 14:30 67/46 L 12/16/22 14:25 97 H 18 98 12/16/22 14:25 71/42 L 12/16/22 14:20 96 H 7 L 99 12/16/22 14:20 77/42 L 12/16/22 14:15 97 H 4 L 98 12/16/22 14:15 80/49 L 12/16/22 14:10 83/48 L 12/16/22 14:10 96 H 7 L 99 12/16/22 14:05 95 H 12 99 12/16/22 14:05 79/44 L 12/16/22 14:00 94 H 17 12/16/22 14:00 72/45 L 12/16/22 13:55 93 H 9 L 99 12/16/22 13:55 75/45 L 12/16/22 13:52 73/46 L 12/16/22 13:52 94 H 17 99 12/16/22 13:47 91 H 18 12/16/22 13:47 75/35 L 12/16/22 13:45 95 H 23 12/16/22 13:40 72/44 L 12/16/22 13:40 94 H 20 12/16/22 13:35 94 H 16 97 12/16/22 13:35 77/40 L 12/16/22 13:30 98 H 23 99 12/16/22 13:30 71/45 L 12/16/22 13:25 99 H 23 99 12/16/22 13:25 84/45 L 12/16/22 13:20 98 H 16 100 12/16/22 13:20 76/46 L 12/16/22 13:15 98 H 19 99 12/16/22 13:15 75/48 L 12/16/22 13:10 68/43 L 12/16/22 13:10 98 H 23 98 12/16/22 13:05 97 H 22 99 12/16/22 13:05 77/46 L 12/16/22 13:01 95 H 20 12/16/22 13:01 67/42 L 12/16/22 14:41 93 H 18 68/52 L 97 12/16/22 14:11 94 H 18 83/48 L 98 12/16/22 13:52 94 H 18 73/46 L 99 12/16/22 13:44 94 H 18 72/44 L 98 12/16/22 13:03 97 H 29 H 98 12/16/22 13:03 98 12/16/22 13:03 36.6 C 94 H 29 H 67/42 L 99 12/16/22 13:02 101 H O2 Del Method 12/16/22 16:15 12/16/22 16:15 12/16/22 16:10 12/16/22 16:10 12/16/22 16:05 12/16/22 16:05 12/16/22 16:00 12/16/22 16:00 12/16/22 15:55 12/16/22 15:55 12/16/22 15:50 12/16/22 15:50 12/16/22 15:45 12/16/22 15:45 12/16/22 15:44 12/16/22 15:44 12/16/22 15:35 12/16/22 15:35 12/16/22 15:30 12/16/22 15:30 12/16/22 15:25 12/16/22 15:25 12/16/22 15:20 12/16/22 15:20 12/16/22 15:15 12/16/22 15:15 12/16/22 15:10 12/16/22 15:10 12/16/22 15:06 12/16/22 15:06 12/16/22 15:03 12/16/22 15:03 12/16/22 15:00 12/16/22 15:00 12/16/22 14:55 12/16/22 14:55 12/16/22 14:50 12/16/22 14:50 12/16/22 14:45 12/16/22 14:45 12/16/22 14:41 12/16/22 14:41 12/16/22 14:30 12/16/22 14:30 12/16/22 14:25 12/16/22 14:25 12/16/22 14:20 12/16/22 14:20 12/16/22 14:15 12/16/22 14:15 12/16/22 14:10 12/16/22 14:10 12/16/22 14:05 12/16/22 14:05 12/16/22 14:00 12/16/22 14:00 12/16/22 13:55 12/16/22 13:55 12/16/22 13:52 12/16/22 13:52 12/16/22 13:47 12/16/22 13:47 12/16/22 13:45 12/16/22 13:40 12/16/22 13:40 12/16/22 13:35 12/16/22 13:35 12/16/22 13:30 12/16/22 13:30 12/16/22 13:25 12/16/22 13:25 12/16/22 13:20 12/16/22 13:20 12/16/22 13:15 12/16/22 13:15 12/16/22 13:10 12/16/22 13:10 12/16/22 13:05 12/16/22 13:05 12/16/22 13:01 12/16/22 13:01 12/16/22 14:41 Room Air 12/16/22 14:11 Room Air 12/16/22 13:52 Room Air 12/16/22 13:44 Room Air 12/16/22 13:03 Room Air 12/16/22 13:03 Room Air 12/16/22 13:03 Room Air 12/16/22 13:02 Lab & Micro Results (Past 24 Hours) RBC 5.02 M/uL (4.70-6.10) 12/16/22 WBC 17.12 K/ul (4.8-10.8) H 12/16/22 Hgb 15.5 g/dl (14.0-18.0) 12/16/22 Hct 45.4 % (42.0-52.0) 12/16/22 MCV 90.4 fL (80.0-100.0) 12/16/22 MCH 30.9 pg (25.0-34.0) 12/16/22 MCHC 34.1 g/dL (32.0-36.0) 12/16/22 RDW Standard Deviation 42.0 fL (36.4-46.3) 12/16/22 RDW Coefficient of Variation 13.0 % (11.5-14.5) 12/16/22 Plt Count 257 K/uL (130-400) 12/16/22 MPV 11.9 fL (9.4-12.4) 12/16/22 Neutrophils (%) (Auto) 82.4 % 12/16/22 Lymphocytes (%) (Auto) 11.1 % 12/16/22 Monocytes # (Auto) 0.78 K/uL (0.11-0.59) H 12/16/22 Eosinophils # (Auto) 0.19 K/uL (0-0.50) 12/16/22 Immature Granulocyte % (Auto) 0.6 % 12/16/22 Neutrophils # (Auto) 14.11 K/uL (1.40-6.50) H 12/16/22 Lymphocytes # (Auto) 1.90 K/uL (1.2-3.4) 12/16/22 Monocytes # (Auto) 0.78 K/uL (0.11-0.59) H 12/16/22 Eosinophils # (Auto) 0.19 K/uL (0-0.50) 12/16/22 Basophils # (Auto) 0.03 K/uL (0-0.2) 12/16/22 Immature Granulocyte # (Auto) 0.11 K/uL (0.01-0.20) 3 Na 136 mmol/L (136-145) 12/16/22 K 5.2 mmol/L (3.5-5.1) H 12/16/22 Cl 104 mmol/L (98-107) 12/16/22 CO2 19 mmol/L (21-32) L 12/16/22 Anion Gap 13 (3-11) H 12/16/22 BUN 56 mg/dl (6-23) H 12/16/22 Creatinine 2.95 mg/dl (0.6-1.4) H 12/16/22 Estimated GFR ( Amer) 26.2 ml/min 12/16/22 Estimated GFR (Non-Af Amer) 22.6 ml/min 12/16/22 BUN/Creatinine Ratio 19.0 (10-20) 12/16/22 Glu 333 mg/dl (70-99(Fasting)) H* 12/16/22 Ca 9.3 mg/dl (8.6-10.3) 12/16/22 Total Bilirubin 1.0 mg/dl (0.2-1.0) 12/16/22 AST 17 U/L (13-39) 12/16/22 ALT 19 U/L (7-52) 12/16/22 Alkaline Phosphatase 53 U/L (34-104) 12/16/22 TP 6.7 gm/dl (6.0-8.3) 12/16/22 Albumin 4.1 gm/dl (3.4-5.0) 12/16/22 Globulin 2.6 gm/dl (2.5-4.0) 12/16/22 Albumin/Globulin Ratio 1.6 (0.9-2) 12/16/22 Calcium Level 9.3 mg/dl (8.6-10.3) 12/16/22 13:22 Diagnostic Findings (Past 24 Hours) Chest X-Ray 12/16/22 12:58 SINGLE VIEW CHEST CLINICAL HISTORY: Allergic reaction. FINDINGS: 2 AP, portable, upright chest radiographs are compared to study dated 05/30/2010. The cardiomediastinal silhouette is unremarkable. The lungs and pleural spaces are clear. No pneumothorax is seen. The bony thorax is grossly intact. IMPRESSION: No active disease in the chest. ACT 112: Negative or not required by law. Electronically signed by: Mohsen Fernandes M.D. 12/16/2022 2:11 PM I & O Totals 24 Hours 12/15/22 12/16/22 12/17/22 06:59 06:59 06:59 Intake Total 1999 Balance 1999 Cumulative 12/16/22 12:34 thru 12/16/22 14:30 Intake Total 1999 RT Ventilator Mngmt (Last Documented) Ventilator Ordered Settings Respiratory Rate 17 12/16/22 16:15 Ventilator - PT Measurements Respiratory Rate 17 Coding Level of Care Code 22254 CRITICAL CARE 1ST 30-74M Diagnoses Anaphylaxis T78.2XXA Encounter type: initial encounter NOLBERTO (acute kidney injury) N17.9 Hyperkalemia E87.5 (1) Anaphylaxis Encounter type: initial encounter Qualified Code(s): T78.2XXA - Anaphylactic shock, unspecified, initial encounter
[2022-12-16] MEDS ORDERED: EPINEPHrine INJ 1 MG/ML AMP ONE (16:32)
[2022-12-16] MEDS ORDERED: EPINEPHrine ADULT AUTO-INJECT 0.3 MG SYR IM STA (16:32)
[2022-12-16] MEDS ORDERED: SODIUM CHLORIDE 0.9% 1000ML 500 ML IV ONE (16:36)
[2022-12-16] MEDS ORDERED: INSULIN REGULAR 250 UNITS in SODIUM CHLORIDE 0.9% 247.5 ML IV SCH (16:45)
[2022-12-16 17:02] LABS: Creatinine Urine Random 43.9 mg/dl; Potassium Random Urine 17.8 mmol/L
[2022-12-16] MEDS ORDERED: ICU Protocol for HYPERglycemia SCH (17:06)
[2022-12-16] MEDS ORDERED: PLASMA-LYTE A 1,000 ML IV ONE ×2 (19:00→20:40)
[2022-12-16 19:54] LABS: HCO3 VBG 14 mmol/L; Oxygen Saturation VBG < 60.0 %; PCO2 VBG 41 mmHg (38-50); PO2 VBG 26 mmHg; pH VBG 7.13 (7.36-7.41)
[2022-12-16] MEDS ORDERED: PLASMA-LYTE A 1,000 ML IV SCH (20:15)
[2022-12-16 20:19] LABS: Albumin Globulin Ratio 1.7 (0.9-2); Albumin Level 3.4 gm/dl (3.4-5.0); BUN Creatinine Ratio 22.6 (10-20); Bilirubin,Total 0.7 mg/dl (0.2-1.0); Calcium 8.6 mg/dl (8.6-10.3); Est GFR (African American) 37.2 ml/min; Est GFR (Non-African American) 32.1 ml/min; Magnesium 1.4 mg/dl (1.7-2.4); Phosphorus 2.2 mg/dl (2.5-4.9); Potassium 4.8 mmol/L (3.5-5.1); Total Protein 5.4 gm/dl (6.0-8.3)
[2022-12-16] MEDS: MAGNESIUM SULFATE / D5W 1 GM/100 ML BAG IV SCH ×2 (20:33→22:06)
[2022-12-16] MEDS ORDERED: STAT IV Infusion **Titration per Protocol STA (20:55)
[2022-12-16] MEDS ORDERED: NOREPINEPHRINE/D5W 4 MG/250 ML PLCT IV SCH (21:00)
[2022-12-16] MEDS ORDERED: SODIUM BICARB 8.4% INJ 50 MEQ/50 ML SYR IV STA (21:06)
[2022-12-16] MEDS: INSULIN ASPART PER UNIT CHARGE SC SCH (21:14)
[2022-12-16] MEDS: FAMOTIDINE 20 MG in SYRINGE 3 ML IV SCH (21:30)
[2022-12-16] MEDS: diphenhydrAMINE Capsule 25 MG CAP PO SCH (21:30)
[2022-12-16] MEDS ORDERED: D5W AND LACTATED RINGERS 1,000 ML IV SCH (21:45)
[2022-12-16 22:11] LABS: Base Excess VBG -9.5 mEq/L; HCO3 VBG 17 mmol/L; Oxygen Saturation VBG < 60.0 %; PCO2 VBG 39 mmHg (38-50); PO2 VBG 21 mmHg; pH VBG 7.25 (7.36-7.41)
[2022-12-16] MEDS ORDERED: STAT IV STA (22:12)
[2022-12-16] MEDS ORDERED: SODIUM BICARBONATE IV SCH (22:15)
[2022-12-16] MEDS ORDERED: DEXTROSE 5% IV SCH (22:15)
[2022-12-16] MEDS ORDERED: LACTATED RINGER'S 500 ML IV ONE (22:20)
[2022-12-16] MEDS: SODIUM BICARBONATE 8.4% 150 MEQ in DEXTROSE 5% 1,000 ML IV SCH (22:42)
[2022-12-17] MEDS: MAGNESIUM SULFATE / D5W 1 GM/100 ML BAG IV SCH (00:03)
[2022-12-17 00:25] LABS: BUN Creatinine Ratio 26.8 (10-20); Calcium 8.3 mg/dl (8.6-10.3); Creatinine Clr Calc Pharmacy 51.9 ml/min; Est GFR (African American) 46.8 ml/min; Est GFR (Non-African American) 40.3 ml/min; Potassium 6.6 mmol/L (3.5-5.1)
[2022-12-17] MEDS ORDERED: STAT IV STA ×2 (00:31→07:48)
[2022-12-17] MEDS ORDERED: CALCIUM GLUCONATE 10% 1,000 MG in DEXTROSE 5% 50 ML IV ONE ×2 (00:45→07:48)
[2022-12-17 03:01] LABS: Basophils # (auto) 0.02 K/uL (0-0.2); Basophils % (auto) 0.1 %; Eosinophils # (auto) 0.03 K/uL (0-0.50); Eosinophils % (auto) 0.2 %; Hemoglobin 10.9 g/dl (14.0-18.0); Immature Granulocytes # (auto) 0.09 K/uL (0.01-0.20); Immature Granulocytes % (auto) 0.6 %; Lymphocytes # (auto) 0.85 K/uL (1.2-3.4); Lymphocytes % (auto) 6.1 %; Mean Corpuscular Hemoglobin 31.5 pg (25.0-34.0); Mean Corpuscular Hgb Conc 35.2 g/dL (32.0-36.0); Mean Corpuscular Volume 89.6 fL (80.0-100.0); Mean Platelet Volume 10.9 fL (9.4-12.4); Monocytes # (auto) 0.42 K/uL (0.11-0.59); Neutrophils # (auto) 12.55 K/uL (1.40-6.50); Platelet Count 184 K/uL (130-400); RDW Coefficient of Variation 12.9 % (11.5-14.5); Red Blood Count 3.46 M/uL (4.70-6.10); White Blood Count 13.96 K/ul (4.8-10.8)
[2022-12-17 03:08] LABS: Albumin Globulin Ratio 1.7 (0.9-2); Bilirubin,Total 0.6 mg/dl (0.2-1.0); Calcium 8.3 mg/dl (8.6-10.3); Creatinine Clr Calc Pharmacy 56.5 ml/min; Est GFR (African American) 51.9 ml/min; Est GFR (Non-African American) 44.7 ml/min; Globulin 1.8 gm/dl (2.5-4.0); Magnesium 2.1 mg/dl (1.7-2.4); Phosphorus 1.6 mg/dl (2.5-4.9); Potassium 5.1 mmol/L (3.5-5.1); Total Protein 4.8 gm/dl (6.0-8.3)
[2022-12-17] MEDS ORDERED: SODIUM PHOSPHATE 3 MMOL/1 ML INFUSION IV STA (03:10)
[2022-12-17] MEDS ORDERED: SODIUM PHOSPHATE IV ONE (03:30)
[2022-12-17] MEDS ORDERED: SODIUM CHLORIDE 0.9% IV ONE (03:30)
[2022-12-17] MEDS: diphenhydrAMINE Capsule 25 MG CAP PO SCH ×3 (05:49→22:55)
[2022-12-17] MEDS: FAMOTIDINE 20 MG in SYRINGE 3 ML IV SCH ×3 (05:50→22:55)
[2022-12-17] MEDS: SODIUM BICARBONATE 8.4% 150 MEQ in DEXTROSE 5% 1,000 ML IV SCH (06:44)
[2022-12-17 07:33] LABS: Calcium 8.4 mg/dl (8.6-10.3); Creatinine Clr Calc Pharmacy 68.6 ml/min; Est GFR (African American) 64.1 ml/min; Est GFR (Non-African American) 55.3 ml/min; Potassium 4.8 mmol/L (3.5-5.1)
[2022-12-17] MEDS ORDERED: LACTATED RINGER'S 2,000 ML IV ONE (07:49)
[2022-12-17] MEDS: POT PHOSPHATE MONOBASIC W/ SOD TAB PO SCH ×4 (08:16→22:56)
[2022-12-17] MEDS: INSULIN ASPART PER UNIT CHARGE SC SCH ×3 (08:17→21:53)
--- NOTE | 2022-12-17 09:19 | Nephrology Consultation ---
Date of Consultation December 17, 2022 Assessment & Plan (1) NOLBERTO (acute kidney injury): NOLBERTO 2/ Volume depletion.There may be an element of ATN. - His renal function has largely improved with IV fluid, UOP is good although his BP continue to be soft. - Continue Iv fluids( Plasmalyte) for 1 more day at 75 mls/hr. - Ok with midodrine at the moment. - Replace electrolyte(Keep k > 4, mg > 2) - Continue to hold Jardiace, furosemide and Lisinoril. this can be restarted gradually after discharge. NOn urgent f/u with Nephrology in 2-3 weeks time with repeat BMP. (2) Anaphylaxis: History of Present Illness Reason for Consultation: Acute kidney injury Attending Physician: Uyen Tracy DO History of Present Illness 57 y/o M with PMH HTN, dyslipidemia, DM II, BLE edema, hypothyroidism who presented to ER with c/o hives and diffuse pruritis secondary to anaphylactic reaction to Mounjaro 2 days back.. He initially went to where he was given Benadryl, but became diaphoretic and hypotensive.EMS was called and after receiving benadryl, epinephrine and IV fluid , he was transferred to ER. Upon ER arrival patient noted to have diffuse urticaria and was hypotensive.He continue to to be hypotensive despite receiving epinephrine,and IVF and was moved to ICU where he was started on Pressure support.. Patient denies any wheezing, SOB, chest pain, nausea, vomiting, abdominal pain, edema of lips or tongue, dysphagia. Labs were significant for NOLBERTO on CKD,(had outpatient labs 12/02/22 and had creatinine of 2.1. His metformin, Jardiance, Lasix were held for one week. Resumed medications on 12/12/22. Outpatient chart reviewed and 12/11/22 Cr: 1.4) with Scr of 2.95.Renal functions have improved with IVF, he is making good urine,Pressors have been stopped and his sBP is in late 90'S. Alert and oriented with no SOB and no pedal Edema on exam. Allergies Allergy/AdvReac Type Severity Reaction Status Date / Time tirzepatide [From Mounjaro] Allergy Severe Anaphylaxis Verified 12/17/22 08:35 Home Medications Medication Instructions Recorded Confirmed Type aspirin 81 mg tablet,delayed 81 mg PO DAILY 12/16/22 12/16/22 History release atorvastatin 40 mg tablet 40 mg PO PM 12/16/22 12/16/22 History empagliflozin 25 mg tablet 25 mg PO DAILY 12/16/22 12/16/22 History (Jardiance) furosemide 40 mg tablet 40 mg PO BID 12/16/22 12/16/22 History glyburide 5 mg tablet 10 mg PO BIDM 12/16/22 12/16/22 History levothyroxine 100 mcg tablet 100 mcg PO DAILY 12/16/22 12/16/22 History lisinopril 20 mg tablet 20 mg PO DAILY 12/16/22 12/16/22 History metformin 1,000 mg tablet 1,000 mg PO BID 12/16/22 12/16/22 History potassium chloride 20 mEq 20 meq PO DAILY 12/16/22 12/16/22 History tablet,extended release(part/cryst) repaglinide 2 mg tablet 4 mg PO TIDM 12/16/22 12/16/22 History tirzepatide 12.5 mg/0.5 mL 12.5 mg subcut WK 12/16/22 12/16/22 History subcutaneous pen injector (Selena) Patient History Medical History Diabetes Diabetes mellitus, type II High cholesterol Hypertension Hypothyroidism Leg edema Surgical History History of cardiac catheterization History of esophagogastroduodenoscopy History of tonsillectomy and adenoidectomy History of umbilical hernia repair Family History Other Diabetes Heart disease Social History Smoking Status: Never smoker Hx Alcohol Use: No Hx Substance Use: No Preferred Language: Georgian Communication Ability: Effective Bench Worker Required: No Beliefs That Will Affect Care: None Current Living Situation: Alone Feels Safe at Home: Yes Assistive Devices: None Review of Systems Review of Systems: Comfortable. No SOB Alert and oriented. Good UOP BP still low Physical Exam Physical Exam: General: no acute distress, WDWN Head: normocephalic, atraumatic Eyes: conjunctiva non-injected, anicteric ENT: normal inspection external ears, nose, mucous membranes moist Neck: supple, trachea midline, +tenderness to palpation bilateral trapezius musculature, +decreased active ROM to lateral bending and flexion and extension Lungs: clear, no respiratory distress, no wheezing/rhonchi/rales CV: RRR, no murmur, no pretibial edema Abd: normal BS, soft, non-tender Ext: no cyanosis, no calf tenderness Neuro: A&O x 3, no focal deficits noted, normal affect Skin: warm, dry, +fading urticaria noted to back, abdomen, bilateral upper and lower extremities Results & Data Vital Signs (Past 12 Hours) Vital Signs Temp Pulse Resp BP Pulse Ox O2 Del Method 12/17/22 08:30 86 19 97 12/17/22 08:00 91 H 18 99 12/17/22 08:00 99/56 L 12/17/22 07:31 89 25 H 97 12/17/22 07:31 89/56 L 12/17/22 07:30 90 22 85 L 12/17/22 07:00 85 11 L 98 12/17/22 07:00 94/55 L 12/17/22 08:00 Room Air 12/17/22 08:00 86 12/17/22 08:00 36.7 C 12/17/22 06:30 83 14 91/55 L 99 Room Air 12/17/22 06:00 87 12 93/56 L 99 Room Air 12/17/22 05:30 83 14 97/54 L 98 Room Air 12/17/22 05:00 80 12 110/58 L 97 Room Air 12/17/22 04:30 86 20 112/82 98 Room Air 12/17/22 04:00 36.8 C 84 21 108/55 L 96 Room Air 12/17/22 03:00 97 H 19 99/54 L 94 Room Air 12/17/22 02:30 95 H 16 95/53 L 95 Room Air 12/17/22 02:00 99 H 23 100/56 L 97 Room Air 12/17/22 01:30 102 H 17 101/50 L 97 Room Air 12/17/22 01:00 96 H 19 123/58 L 97 Room Air 12/17/22 00:30 88 25 H 120/61 96 Room Air 12/17/22 00:00 36.7 C 86 25 H 113/61 97 Room Air 12/16/22 23:30 88 24 110/58 L 97 Room Air 12/16/22 23:00 76 24 100/53 L 97 Room Air 12/16/22 22:30 70 20 98/51 L 97 Room Air 12/16/22 22:00 82 18 90/48 L 98 Room Air 12/16/22 21:51 78 19 90/44 L 98 Room Air 12/16/22 21:39 73 12 86/43 L 100 Room Air 12/16/22 21:30 72 19 89/48 L 97 Room Air 12/16/22 21:22 86 12 80/50 L 98 Room Air 12/16/22 21:08 87 20 93/47 L 100 Room Air Laboratory Results 12/17/22 02:32 12/17/22 06:49 (2) Anaphylaxis Encounter type: initial encounter Qualified Code(s): T78.2XXA - Anaphylactic shock, unspecified, initial encounter
--- NOTE | 2022-12-17 09:27 | Hospitalist Progress Note ---
Date of Service December 17, 2022 Assessment & Plan (1) Anaphylactic shock: Plan: Patient is 57 y/o M with PMH HTN, dyslipidemia, DM II, BLE edema, hypothyroidism presented to ER with c/o hives started the stefan after taking first dose of Mounjaro yesterday. No SOB or angioedema Dizzy, diaphoretic pre-hospital and was given IV Benadryl, IV epinephrine. Upon ER arrival patient noted to have diffuse urticaria and was hypotensive. Was given epinephrine 0.3mg IM, 25mg IV Benadryl, IV Pepcid, IV decadron, 3L NSS. SBPs from 60's up to 80's. Pulse in 90's. No hypoxia, no wheezing. Required additional epinephrine 0.3mg IM and was sent to ICU Benadryl and famotidine Hives have resolved. Additional fluid resuscitation was started and pressor support with Levaquin overnight. Persistent hypotension. Cont holding home lisinopril and Lasix as hypotensive and with NOLBERTO Lactate improved after resuscitation efforts. (2) NOLBERTO (acute kidney injury): Plan: Cr: 2.9. Was 1.4 on 12/11/22 after holding metformin, Jardiance, Lasix for one week. Cr: 2.1 on 12/02/22 with prior baseline of 1.0. Improved to 1.8 Hold lisinopril, Lasix, home glycemic agents BMP in am Nephrology consult (3) Neck pain: Plan: Posterior neck pain x 1-2 months Consider imaging/outpatient workup when patient more stable (4) Diabetes mellitus, type II: Plan: A1c: 8.1 on 12/02/22 Glucose: 333 Hold home meds Insulin per glycemic pharmacist. Euglycemic (5) Hypertension: Plan: Holding home agents while hypotensive. Cont midodrine started in the ICU with a wean tomorrow. (6) High cholesterol: Plan: chronic, stable. Cont atorvastatin per home regimen. (7) Hypothyroidism: Plan: chronic, stable. Cont levothyroxine per home regimen. DVT proph: Lovenox Full Code Follows with Dr Regina Marshall for routine care Pt was seen and care coordinated with Dr Tracy. See addendum I spent a total of 60 minutes reviewing notes, outpatient records, labs, medication, coordinating, documenting and providing care for this patient excluding time spent in the performance of separately billed services. DO [facility] Hospitalist Admission and Anticipated Discharge Date Admission Date: December 16, 2022 Subjective 57 yo M presents with anaphylactic shock after Mounjaro use. He has been off pressors for 12 hours and is being transferred out if ICU Remains hypotensive but is asymptomatic. Tolerating PO Denies pain Hives have completely resolved. Review of Systems Review of Systems: All systems were reviewed and negative except as indicated as above. Physical Exam Physical Exam: CONSTITUTIONAL: WNWD, vitals as above, generally well-appearing, NAD EYES: normal conjunctivae, no scleral icterus ENT: external ear and nose normal, MMM NECK: trachea midline, MMM RESPIRATORY: clear to auscultation bilaterally, no crackles, rales or wheezes, normal respiratory effort CARDIOVASCULAR: regular rate and rhythm, S1 and 2 heard without murmurs, gallops or rubs, no JVD, no peripheral edema CHEST: inspection of chest was normal GASTROINTESTINAL: soft, nontender, ND, no guarding MUSCULOSKELETAL: strength 5/5 throughout, head is normocephalic and atraumatic SKIN: warm and dry, no rashes NEUROLOGIC: CN 2-12 grossly intact, no sensory deficit, normal cognition, normal speech, no tremor PSYCHIATRIC: alert cooperative and oriented to person, place and time. Euthymic mood, makes good eye contact, language grossly intact, recent and remote memory grossly intact. Results & Data Results & Data Vital Signs (Past 12 Hours) Vital Signs Temp Pulse Resp BP Pulse Ox O2 Del Method 12/17/22 08:30 86 19 97 12/17/22 08:00 91 H 18 99 12/17/22 08:00 99/56 L 12/17/22 07:31 89 25 H 97 12/17/22 07:31 89/56 L 12/17/22 07:30 90 22 85 L 12/17/22 07:00 85 11 L 98 12/17/22 07:00 94/55 L 12/17/22 08:00 Room Air 12/17/22 08:00 86 12/17/22 08:00 36.7 C 12/17/22 06:30 83 14 91/55 L 99 Room Air 12/17/22 06:00 87 12 93/56 L 99 Room Air 12/17/22 05:30 83 14 97/54 L 98 Room Air 12/17/22 05:00 80 12 110/58 L 97 Room Air 12/17/22 04:30 86 20 112/82 98 Room Air 12/17/22 04:00 36.8 C 84 21 108/55 L 96 Room Air 12/17/22 03:00 97 H 19 99/54 L 94 Room Air 12/17/22 02:30 95 H 16 95/53 L 95 Room Air 12/17/22 02:00 99 H 23 100/56 L 97 Room Air 12/17/22 01:30 102 H 17 101/50 L 97 Room Air 12/17/22 01:00 96 H 19 123/58 L 97 Room Air 12/17/22 00:30 88 25 H 120/61 96 Room Air 12/17/22 00:00 36.7 C 86 25 H 113/61 97 Room Air 12/16/22 23:30 88 24 110/58 L 97 Room Air 12/16/22 23:00 76 24 100/53 L 97 Room Air 12/16/22 22:30 70 20 98/51 L 97 Room Air 12/16/22 22:00 82 18 90/48 L 98 Room Air 12/16/22 21:51 78 19 90/44 L 98 Room Air 12/16/22 21:39 73 12 86/43 L 100 Room Air 12/16/22 21:30 72 19 89/48 L 97 Room Air Laboratory Results Short CBC 12/16/22 12/17/22 Range/Units 13:22 02:32 WBC 17.12 H 13.96 H (4.8-10.8) K/ul Hgb 15.5 10.9 L D (14.0-18.0) g/dl Hct 45.4 31.0 L (42.0-52.0) % Plt Count 257 184 (130-400) K/uL BMP 12/16/22 12/16/22 12/16/22 13:22 19:38 23:13 Sodium 136 138 136 Potassium 5.2 H 4.8 6.6 H* D Chloride 104 114 H 111 H Carbon Dioxide 19 L 14 L 15 L BUN 56 H 50 H 49 H Creatinine 2.95 H 2.21 H D 1.83 H D Glucose 333 H* 208 H 271 H Calcium 9.3 8.6 8.3 L 12/17/22 12/17/22 02:32 06:49 Sodium 138 141 Potassium 5.1 D 4.8 Chloride 111 H 112 H Carbon Dioxide 19 L 22 BUN 42 H 38 H Creatinine 1.68 H 1.41 H Glucose 242 H 131 H Calcium 8.3 L 8.4 L Liver Function 12/16/22 12/16/22 12/17/22 Range/Units 13:22 19:38 02:32 Total Bilirubin 1.0 0.7 0.6 (0.2-1.0) mg/dl AST 17 12 L 10 L (13-39) U/L ALT 19 14 12 (7-52) U/L Alkaline Phosphatase 53 42 34 (34-104) U/L Albumin 4.1 3.4 3.0 L (3.4-5.0) gm/dl Urine 12/16/22 Range/Units 15:44 Urine Color Yellow Urine Appearance Clear (Clear) Urine pH 5.0 (4.5-7.5) Ur Specific [place] 1.013 (1.000-1.030) Urine Protein Negative (Negative) Urine Glucose (UA) 3+ H (Negative) Medications Administered Current Inpatient Medications Dextrose (Dextrose 50% 50 Ml Syringe) 25 - 50 ml IV UD PRN; Protocol PRN Reason: Hypoglycemia Protocol Stop: 01/15/23 16:28 Diphenhydramine HCl (Diphenhydramine Capsule 25 Mg Cap) 25 mg PO Q8 [facility]ACE Stop: 01/15/23 21:59 Last Admin: 12/17/22 05:49 Dose: 25 mg Glucagon (Glucagon For Inj 1 Mg Vial) 1 mg SQ UD PRN; Protocol PRN Reason: Hypoglycemia Protocol Stop: 01/15/23 16:28 Glucose (Glucose 10 Tab/Tube) 4 - 8 tab PO UD PRN; Protocol PRN Reason: Hypoglycemia Treatment Stop: 01/15/23 16:28 Glucose (Glucose 40% Gel 15 Gm Tube) 15 - 30 gm PO UD PRN; Protocol PRN Reason: Hypoglycemia Protocol Stop: 01/15/23 16:28 Insulin Human Regular 250 (units/ Sodium Chloride) 250 mls @ 2.9 mls/hr IV .Q24H PEACE; Protocol Stop: 01/15/23 16:44 Last Titration: 12/17/22 08:00 Dose: 2.9 units/hr, 2.9 mls/hr Famotidine 20 mg/ Syringe 5 mls @ 2.5 mls/min IV Q8 [facility] Stop: 01/15/23 21:59 Last Admin: 12/17/22 05:50 Dose: 2.5 mls/min Norepinephrine Bitartrate (Levophed/D5w) 4 mg in 250 mls @ 0 mls/hr IV .Q0M [facility]; Protocol Stop: 01/15/23 20:59 Last Titration: 12/17/22 05:15 Dose: 0 mcg/kg/min, 0 mls/hr Lactated Ringer's (Lr) 2,000 mls @ 999 mls/hr IV .Q2H1M ONE Stop: 12/17/22 09:49 Last Admin: 12/17/22 08:17 Dose: 999 mls/hr Insulin Aspart (Insulin Aspart Per Unit Charge) 0 units SC ACHS [facility] Stop: 01/15/23 20:59 Last Admin: 12/17/22 08:17 Dose: Not Given Miscellaneous (Carbohydrates For Hypoglycemia ) 15 - 30 gm PO UD PRN PRN Reason: Hypoglycemia Protocol Stop: 01/15/23 16:28 Potassium Phosphate (Pot Phosphate Monobasic W/ Sod Tab) 2 tab PO QID [facility] Stop: 12/17/22 21:01 Last Admin: 12/17/22 08:16 Dose: 2 tab
[2022-12-17] MEDS ORDERED: PHARMACY GLYCEMIC MGMT CONSULT PRN (09:45)
[2022-12-17] MEDS ORDERED: LANTUS PER UNIT CHARGE SC STA (09:51)
--- NOTE | 2022-12-17 09:55 | Critical Care Progress Note ---
Date of Service December 17, 2022 Assessment & Plan (1) Anaphylaxis: Plan: Pt is a 57 yo male with diabetes presenting with potential anaphylactic reaction. The itching and hives have resolved however he has an acute kidney injury and hypotension. Anaphylactoid reaction-resolved - BPs have stabilized w/o vasopressors - pt is w/o further allergic symptoms - pt has been OOB w/o symptoms Acute kidney injury - per pt, recent outpatient labs showed a Cr ~1.4; NOLBERTO this hospitalization is most likely related to dehydration and/or anaphylactoid reaction - Cr improved to what may be pt's new baseline - electrolytes stable Diabetes - DKA/HHS state resolved - will transition pt from insulin GTT to subQ - pt will need reconsideration of outpatient regimen as metformin may not be the best option moving forward considering his kidney function Hx of HTN - pt on lisinopril as an outpatient; held while hospitalized d/t NOLBERTO - pt will need outpatient f/u to establish new baseline Cr and an appropriate BP regimen can be decided Hypothyroidism - continue home levothyroxine DVT ppx: low risk, ambulation Code: full Please refer to Dr. Arnett's documentation for further recommendations. (2) NOLBERTO (acute kidney injury): (3) Diabetes mellitus, type II: (4) Hypertension: (5) Hypothyroidism: (6) Hyperkalemia: Admission and Anticipated Discharge Date Admission Date: December 16, 2022 Supervising Physician Co-Signing Physician Notes Patient seen and examined. EMR reviewed. Discussed on multidisciplinary rounds and with family practice resident. Agree with assessment plan as noted. Patient has demonstrated clinical improvement. His blood pressure remains slightly soft and is likely multifactorial due to combinations of volume depletion and concomitant use of antihypertensives in the setting of progressive renal failure. I think is component of anaphylaxis is resolved at this point in time. Would continue steroids and H1 and H2 blockers. Will give an additional fluid bolus today and potentially consider midodrine if blood pressure support is required. His kidney numbers are improving. Discontinue bicarb drip. Will transition off the insulin drip to subcutaneous regiment. Advancing diet as tolerated. Out of bed to chair as tolerated. If the blood pressure holds, he can likely transition to the floor later today. Did demonstrate a decrease in his hemoglobin and hematocrit this morning which is likely delusional given the large volume of crystalloid he received. No signs of acute blood loss or bleeding. Continue to follow at this point in time. When the patient transfers out of the ICU, critical care will sign off. Subjective Pt feeling well this AM. No complaints of chest pain, SOB, or leg pains. He is no longer itching and hasn't noticed any further hives. Review of Systems Review of Systems: As per HPI Physical Exam Physical Exam: Constitutional: well appearing, no acute distress HEENT: normocephalic, no conjunctival injection CV: regular rhythm, regular rate, no murmur, no LE edema Respiratory: Clear to auscultation bilaterally. No rhonchi, wheezes, or crackles. No increased work of breathing GI: soft, nondistended, nontender, positive bowel sounds MSK: no gross deformities noted Neuro: alert, oriented, no FND noted Results & Data Results & Data Vital Signs (Past 12 Hours) Vital Signs Temp Pulse Resp BP Pulse Ox O2 Del Method 12/17/22 08:30 86 19 97 12/17/22 08:00 91 H 18 99 12/17/22 08:00 99/56 L 12/17/22 07:31 89 25 H 97 12/17/22 07:31 89/56 L 12/17/22 07:30 90 22 85 L 12/17/22 07:00 85 11 L 98 12/17/22 07:00 94/55 L 12/17/22 08:00 Room Air 12/17/22 08:00 86 12/17/22 08:00 36.7 C 12/17/22 06:30 83 14 91/55 L 99 Room Air 12/17/22 06:00 87 12 93/56 L 99 Room Air 12/17/22 05:30 83 14 97/54 L 98 Room Air 12/17/22 05:00 80 12 110/58 L 97 Room Air 12/17/22 04:30 86 20 112/82 98 Room Air 12/17/22 04:00 36.8 C 84 21 108/55 L 96 Room Air 12/17/22 03:00 97 H 19 99/54 L 94 Room Air 12/17/22 02:30 95 H 16 95/53 L 95 Room Air 12/17/22 02:00 99 H 23 100/56 L 97 Room Air 12/17/22 01:30 102 H 17 101/50 L 97 Room Air 12/17/22 01:00 96 H 19 123/58 L 97 Room Air 12/17/22 00:30 88 25 H 120/61 96 Room Air 12/17/22 00:00 36.7 C 86 25 H 113/61 97 Room Air 12/16/22 23:30 88 24 110/58 L 97 Room Air 12/16/22 23:00 76 24 100/53 L 97 Room Air 12/16/22 22:30 70 20 98/51 L 97 Room Air 12/16/22 22:00 82 18 90/48 L 98 Room Air 12/16/22 21:51 78 19 90/44 L 98 Room Air Resident Activity Tracking Resident Involvement: Resident Care Provided Care Provided: Adult Hospital Medicine (ICU) (1) Anaphylaxis Encounter type: initial encounter Qualified Code(s): T78.2XXA - Anaphylactic shock, unspecified, initial encounter
--- NOTE | 2022-12-17 11:04 | Pharmacy Report ---
Pharmacy Glycemic Short Note 2 - Date of Service December 17, 2022 - Glycemic Short BSG Results (Last 24 hours): 12/16/22 12/16/22 12/16/22 13:22 17:48 18:32 Glucose 333 H* POC Glucose 296 H 248 H 12/16/22 12/16/22 12/16/22 18:57 19:38 20:05 Glucose 208 H POC Glucose 228 H 178 H 12/16/22 12/16/22 12/16/22 21:11 22:08 22:56 Glucose POC Glucose 176 H 223 H 241 H 12/16/22 12/16/22 12/17/22 23:13 23:59 00:55 Glucose 271 H POC Glucose 279 H 282 H 12/17/22 12/17/22 12/17/22 02:03 02:32 02:58 Glucose 242 H POC Glucose 261 H 196 H 12/17/22 12/17/22 12/17/22 04:06 05:03 06:07 Glucose POC Glucose 169 H 166 H 126 H 12/17/22 12/17/22 12/17/22 06:49 06:52 08:08 Glucose 131 H POC Glucose 124 H 170 H 12/17/22 12/17/22 09:06 10:01 Glucose POC Glucose 152 H 144 H OUTPATIENT ANTIDIABETIC REGIMEN: * Metformin * Glyburide * Empagliflozin * Repaglinide * Tirzepatide (1st dose 12/14) * Unknown HbA1c, ordered for 12/18/22 ASSESSMENT: * 57 yo M with T2DM on four non-insulin diabetes medications with 5th (tirzepatide) added recently. 1st dose of tirzepatide on 12/14. Presented to [facility] with anaphylaxis on 12/16 likely 2nd tirzepatide. * Insulin drip initiated for BSG's >300. Unlikely to be DKA or HHS, but drip still reasonable given illness severity and hyperglycemia. BSG's, anion gap, and CO2 now normalized. Discussed with Dr. Arnett at ICU rounds - OK to transition off drip * No prior admissions to review for glycemic data * Stressors * Physiologic from anaphylaxis - likely dissipating at this time * Dexamethasone administered in ED yesterday - anticipate glycemic effects to persist at least through today and possibly part of tomorrow as well * Norepinephrine now off as of about 0700 this AM * D5W infusions (with LR or bircarb) have been running between 125-175 mL/hr since last night, but now have been stopped as of ~0800 today * Patient now ordered a diet * Insulin drip initiated at 9 units/hr but has titrated down and is running at 2.3 units/hr now. Given that most stressors are lessening and insulin drip is titrating down on it's own, will not be aggressive with Lantus * Will initiate weight-based moderate stress Novolog at dinner PLAN FOR INPATIENT GLYCEMIC CONTROL: * Hold outpatient diabetes medications * Tirzepatide has been added to the patient's allergy list * Basal insulin * Lantus 20 units SQ x1 with an additional 10 units tonight if BSG >180 mg/dL * Stop insulin infusion at 1630 today, or as soon as 1200 if the insulin drip titration notes to hold the drip * Bolus insulin * NovoLog per scale ACHS or Q6hrs while NPO * Goal Range: Low 120 mg/dL - High 150 mg/dL * Correction Factor: 25 mg/dL/unit * Nutritional / Prandial insulin per carb ratio of 1 unit per 8 grams CHO consumed
[2022-12-17] MEDS ORDERED: INSULIN ASPART PER UNIT CHARGE SC ONE (11:30)
[2022-12-17] MEDS: MIDODRINE HCL 10 MG TAB PO SCH ×2 (11:55→16:41)
--- NOTE | 2022-12-17 13:13 | Billing Data ---
Date of Service December 17, 2022 Coding Level of Care Code 27849 SUB INP/OBS CARE MIN
[2022-12-17] MEDS ORDERED: LANTUS PER UNIT CHARGE SC ONE (21:00)
[2022-12-18] MEDS: INSULIN ASPART PER UNIT CHARGE SC SCH ×6 (00:07→20:23)
[2022-12-18] MEDS: FAMOTIDINE 20 MG in SYRINGE 3 ML IV SCH (06:12)
[2022-12-18] MEDS: diphenhydrAMINE Capsule 25 MG CAP PO SCH (06:13)
[2022-12-18 06:38] LABS: Basophils # (auto) 0.01 K/uL (0-0.2); Basophils % (auto) 0.1 %; Eosinophils # (auto) 0.21 K/uL (0-0.50); Eosinophils % (auto) 2.8 %; Hematocrit (blood only) 29.9 % (42.0-52.0); Hemoglobin 10.2 g/dl (14.0-18.0); Immature Granulocytes # (auto) 0.03 K/uL (0.01-0.20); Immature Granulocytes % (auto) 0.4 %; Lymphocytes # (auto) 2.42 K/uL (1.2-3.4); Lymphocytes % (auto) 31.9 %; Mean Corpuscular Hemoglobin 31.3 pg (25.0-34.0); Mean Corpuscular Hgb Conc 34.1 g/dL (32.0-36.0); Mean Corpuscular Volume 91.7 fL (80.0-100.0); Mean Platelet Volume 11.1 fL (9.4-12.4); Monocytes # (auto) 0.37 K/uL (0.11-0.59); Monocytes % (auto) 4.9 %; Neutrophils # (auto) 4.55 K/uL (1.40-6.50); Neutrophils % (auto) 59.9 %; Platelet Count 157 K/uL (130-400); RDW Coefficient of Variation 13.5 % (11.5-14.5); RDW Standard Deviation 44.2 fL (36.4-46.3); Red Blood Count 3.26 M/uL (4.70-6.10); White Blood Count 7.59 K/ul (4.8-10.8)
[2022-12-18 07:02] LABS: Magnesium 1.6 mg/dl (1.7-2.4)
[2022-12-18 07:21] LABS: Estimated Average Glucose 183 mg/dl
[2022-12-18] MEDS: MIDODRINE HCL 10 MG TAB PO SCH ×2 (08:06→16:56)
[2022-12-18] MEDS ORDERED: LANTUS PER UNIT CHARGE SC SCH (09:00)
--- NOTE | 2022-12-18 11:43 | Hospitalist Progress Note ---
Date of Service December 18, 2022 Assessment & Plan (1) Anaphylactic shock: Plan: Patient is 57 y/o M with PMH HTN, dyslipidemia, DM II, BLE edema, hypothyroidism presented to ER with c/o hives started the stefan after taking first dose of Mounjaro yesterday. No SOB or angioedema Dizzy, diaphoretic pre-hospital and was given IV Benadryl, IV epinephrine. Upon ER arrival patient noted to have diffuse urticaria and was hypotensive. Was given epinephrine 0.3mg IM, 25mg IV Benadryl, IV Pepcid, IV decadron, 3L NSS. SBPs from 60's up to 80's. Pulse in 90's. No hypoxia, no wheezing. Required additional epinephrine 0.3mg IM and was sent to ICU Benadryl and famotidine were scheduled. Hives have resolved. Additional fluid resuscitation was started and pressor support with Levaquin overnight. Persistent hypotension. Cont holding home lisinopril and Lasix as hypotensive and with NOLBERTO Lactate improved after resuscitation efforts. (2) Mobitz (type) II atrioventricular block: Plan: New transient finding on telemetry. Consulted cardiology. Not on AV sukhjinder blockers. (3) NOLBERTO (acute kidney injury): Plan: Cr: 2.9. Was 1.4 on 12/11/22 after holding metformin, Jardiance, Lasix for one week. Cr: 2.1 on 12/02/22 with prior baseline of 1.0. Improved to 1.8 Hold lisinopril, Lasix, home glycemic agents Nephrology consulted and suspects there may be an element of ATN. BMP in am (4) Neck pain: Plan: Posterior neck pain x 1-2 months Consider imaging/outpatient workup when patient more stable (5) Diabetes mellitus, type II: Plan: A1c: 8.1 on 12/02/22 Glucose: 333 Hold home meds Insulin per glycemic pharmacist. Euglycemic at this time. (6) Hypertension: Plan: Holding home agents while hypotensive. Cont midodrine with wean (7) High cholesterol: Plan: chronic, stable. Cont atorvastatin per home regimen. (8) Hypothyroidism: Plan: chronic, stable. Cont levothyroxine per home regimen. DVT proph: Lovenox Full Code Follows with Dr Regina Marshall for routine care Pt was seen and care coordinated with Dr Tracy. See addendum I spent a total of 60 minutes reviewing notes, outpatient records, labs, medication, coordinating, documenting and providing care for this patient excluding time spent in the performance of separately billed services. Uyen Tracy DO [facility] Hospitalist Admission and Anticipated Discharge Date Admission Date: December 16, 2022 Subjective 57 yo M presents with anaphylactic shock after Mounjaro use. Doing well overall today remains on midodrine which is being titrated down some itching present on scalp but no further hives BP appears to be stabilizing. After a walk in the hallway, noted Mobitz II block on telemetry Returned to sinus rhythm afterwards and patient denied symptoms of lightheadedness or other Consulted cardiology. I spoke with the local unloader, Dr. Cloud, regarding transition back to [facility]. He feels that is unsafe unless done under supervision in the allergy clinic. 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 These recs were communicated to him today and he verbalized understanding. Review of Systems Review of Systems: All systems were reviewed and negative except as indicated as above. Physical Exam Physical Exam: CONSTITUTIONAL: WNWD, vitals as above, generally well-appearing, NAD EYES: normal conjunctivae, no scleral icterus ENT: external ear and nose normal, MMM NECK: trachea midline, MMM RESPIRATORY: clear to auscultation bilaterally, no crackles, rales or wheezes, normal respiratory effort CARDIOVASCULAR: regular rate and rhythm, S1 and 2 heard without murmurs, gallops or rubs, no JVD, no peripheral edema CHEST: inspection of chest was normal GASTROINTESTINAL: soft, nontender, ND, no guarding MUSCULOSKELETAL: strength 5/5 throughout, head is normocephalic and atraumatic SKIN: warm and dry, no rashes NEUROLOGIC: CN 2-12 grossly intact, no sensory deficit, normal cognition, normal speech, no tremor PSYCHIATRIC: alert cooperative and oriented to person, place and time. Euthymic mood, makes good eye contact, language grossly intact, recent and remote memory grossly intact. Results & Data Results & Data Vital Signs (Past 12 Hours) Vital Signs Temp Pulse Pulse Resp BP Pulse Ox O2 Del Method 12/18/22 10:47 36.7 C 60 19 95/49 L 95 Room Air 12/18/22 07:00 63 12/18/22 07:23 36.4 C L 66 18 94/60 L 94 Room Air 12/18/22 04:15 36.3 C L 51 L 17 92/54 L 97 Room Air 12/18/22 00:36 67 12/17/22 23:51 36.6 C 65 18 104/65 95 Room Air Laboratory Results Short CBC 12/18/22 Range/Units 06:16 WBC 7.59 (4.8-10.8) K/ul Hgb 10.2 L (14.0-18.0) g/dl Hct 29.9 L (42.0-52.0) % Plt Count 157 (130-400) K/uL Medications Administered Current Inpatient Medications Dextrose (Dextrose 50% 50 Ml Syringe) 25 - 50 ml IV UD PRN; Protocol PRN Reason: Hypoglycemia Protocol Stop: 01/15/23 16:28 Enoxaparin Sodium (Enoxaparin Inj 40 Mg/0.4 Ml Syr) 40 mg SQ Q24H [facility] Stop: 01/17/23 11:59 Glucagon (Glucagon For Inj 1 Mg Vial) 1 mg SQ UD PRN; Protocol PRN Reason: Hypoglycemia Protocol Stop: 01/15/23 16:28 Glucose (Glucose 10 Tab/Tube) 4 - 8 tab PO UD PRN; Protocol PRN Reason: Hypoglycemia Treatment Stop: 01/15/23 16:28 Glucose (Glucose 40% Gel 15 Gm Tube) 15 - 30 gm PO UD PRN; Protocol PRN Reason: Hypoglycemia Protocol Stop: 01/15/23 16:28 Magnesium Sulfate/Dextrose (Magnesium Sulfate / D5w) 1 gm in 100 mls @ 50 mls/hr IV Q2H [facility] Stop: 12/18/22 15:29 Insulin Aspart (Insulin Aspart Per Unit Charge) 0 units SC ACHS [facility] Stop: 01/16/23 16:29 Last Admin: 12/18/22 08:05 Dose: 7 units Insulin Glargine (Lantus Per Unit Charge) 12 units SC QAM [facility] Stop: 01/17/23 08:59 Last Admin: 12/18/22 09:23 Dose: 12 units Midodrine (Midodrine Hcl 10 Mg Tab) 10 mg PO BID@0800,1700 [facility] Stop: 01/17/23 16:59 Miscellaneous (Carbohydrates For Hypoglycemia ) 15 - 30 gm PO UD PRN PRN Reason: Hypoglycemia Protocol Stop: 01/15/23 16:28 Miscellaneous Information (Pharmacy Glycemic Mgmt Consult) 1 each N/A UD PRN PRN Reason: Consult Stop: 01/16/23 09:44
[2022-12-18] MEDS: MAGNESIUM SULFATE / D5W 1 GM/100 ML BAG IV SCH ×2 (12:02→13:37)
[2022-12-18] MEDS: ENOXAPARIN INJ 40 MG/0.4 ML SYR SQ SCH (13:36)
--- NOTE | 2022-12-18 14:35 | Pharmacy Report ---
Pharmacy Glycemic Short Note 2 - Date of Service December 18, 2022 - Glycemic Short BSG Results (Last 24 hours): 12/17/22 12/17/22 12/17/22 16:25 21:49 23:58 POC Glucose 94 112 H 110 H 12/18/22 12/18/22 12/18/22 04:08 07:20 11:09 POC Glucose 95 88 135 H OUTPATIENT ANTIDIABETIC REGIMEN: * Metformin * Glyburide * Empagliflozin * Repaglinide * Tirzepatide (1st dose 12/14) * HbA1c = 8% on 12/18/22 ASSESSMENT: 12/18/22: * Insulin drip was discontinued yesterday since BSGs trended down to 94 mg/dl by dinner time. Patient had received 20 units of basal insulin yesterday. * Fasting BSG today was 88 mg/dl. Basal dose today reduced to 12 units this AM which is between a stress of 1 and 2. * Pre-lunch BSG = 135 mg/dl. Continued Novolog parameters the same as yesterday. Background 12/17/22: * 57 yo M with T2DM on four non-insulin diabetes medications with 5th (tirzepatide) added recently. 1st dose of tirzepatide on 12/14. Presented to [facility] with anaphylaxis on 12/16 likely 2nd tirzepatide. * Insulin drip initiated for BSG's >300. Unlikely to be DKA or HHS, but drip still reasonable given illness severity and hyperglycemia. BSG's, anion gap, and CO2 now normalized. Discussed with Dr. Arnett at ICU rounds - OK to transition off drip * No prior admissions to review for glycemic data * Stressors * Physiologic from anaphylaxis - likely dissipating at this time * Dexamethasone administered in ED yesterday - anticipate glycemic effects to persist at least through today and possibly part of tomorrow as well * Norepinephrine now off as of about 0700 this AM * D5W infusions (with LR or bircarb) have been running between 125-175 mL/hr since last night, but now have been stopped as of ~0800 today * Patient now ordered a diet * Insulin drip initiated at 9 units/hr but has titrated down and is running at 2.3 units/hr now. Given that most stressors are lessening and insulin drip is titrating down on it's own, will not be aggressive with Lantus * Will initiate weight-based moderate stress Novolog at dinner PLAN FOR INPATIENT GLYCEMIC CONTROL: * Hold outpatient diabetes medications * Basal insulin * Lantus 12 units SC QAM * Bolus insulin * NovoLog per scale ACHS or Q6hrs while NPO * Goal Range: Low 120 mg/dL - High 150 mg/dL * Correction Factor: 25 mg/dL/unit * Nutritional / Prandial insulin per carb ratio of 1 unit per 8 grams CHO consumed
--- NOTE | 2022-12-18 14:51 | Cardiology Consultation ---
Date of Consultation December 18, 2022 Assessment & Plan (1) Mobitz (type) II atrioventricular block: Plan 57 yo man presenting with pruritus/hives Dx: Anaphylaxis Consult: Mobitz Type II on telemetry * Pt with longstanding Hx of DMII * On multi-drug regimen for DM * Recently has tirzepatide added recently. 1st dose of tirzepatide on 12/14. * Noted ot have pruritis + hives + diaphoresis * Rx with Histamine blockers + Epinephrine in the field * Pt treated with Steroids + Norepinephrine + IV Fluids * Noted to have NOLBERTO + Hyperkalemia * Transient pressor support * Continuous infusion of Insulin started * + Mobitz II noted on telemetry * Patient asymptomatic * Keep K+ @ goal 4.5-5 * Keep Mag at goal - >2 * Continue to monitor on telemetry * No on sukhjinder agents * Follow with Dex[facility] History of Present Illness Reason for Consultation: Anaphylaxis s/p new medication for DMII Mobitz II noted on Telemetry Pt asymptomatic Attending Physician: Uyen Tracy DO Allergies Allergy/AdvReac Type Severity Reaction Status Date / Time tirzepatide [From Selena] Allergy Severe Anaphylaxis Verified 12/17/22 08:35 Home Medications Medication Instructions Recorded Confirmed Type aspirin 81 mg tablet,delayed 81 mg PO DAILY 12/16/22 12/16/22 History release atorvastatin 40 mg tablet 40 mg PO PM 12/16/22 12/16/22 History empagliflozin 25 mg tablet 25 mg PO DAILY 12/16/22 12/16/22 History (Jardiance) furosemide 40 mg tablet 40 mg PO BID 12/16/22 12/16/22 History glyburide 5 mg tablet 10 mg PO BIDM 12/16/22 12/16/22 History levothyroxine 100 mcg tablet 100 mcg PO DAILY 12/16/22 12/16/22 History lisinopril 20 mg tablet 20 mg PO DAILY 12/16/22 12/16/22 History metformin 1,000 mg tablet 1,000 mg PO BID 12/16/22 12/16/22 History potassium chloride 20 mEq 20 meq PO DAILY 12/16/22 12/16/22 History tablet,extended release(part/cryst) repaglinide 2 mg tablet 4 mg PO TIDM 12/16/22 12/16/22 History tirzepatide 12.5 mg/0.5 mL 12.5 mg subcut WK 12/16/22 12/16/22 History subcutaneous pen injector (Selena) Patient History Medical History Diabetes Diabetes mellitus, type II High cholesterol Hypertension Hypothyroidism Leg edema Surgical History History of cardiac catheterization History of esophagogastroduodenoscopy History of tonsillectomy and adenoidectomy History of umbilical hernia repair Family History Other Diabetes Heart disease Social History Smoking Status: Never smoker Hx Alcohol Use: No Hx Substance Use: No Preferred Language: Bengali Communication Ability: Effective Campaign Consultant Required: No Beliefs That Will Affect Care: None Current Living Situation: Alone Feels Safe at Home: Yes Assistive Devices: None Review of Systems Review of Systems: All systems reviewed & are unremarkable except as noted in HPI & below Physical Exam Physical Exam: Overweight man in NAD JVP 14 cmH20 S1S2 Soft 2/6 systolic murmur CTA B No C/C - trace edema Warm extremities Results & Data Vital Signs (Past 12 Hours) Vital Signs Temp Pulse Pulse Resp BP Pulse Ox O2 Del Method 12/18/22 10:47 36.7 C 60 19 95/49 L 95 Room Air 12/18/22 07:00 63 12/18/22 07:23 36.4 C L 66 18 94/60 L 94 Room Air 12/18/22 04:15 36.3 C L 51 L 17 92/54 L 97 Room Air Laboratory Results CBC 12/18/22 Range/Units 06:16 WBC 7.59 (4.8-10.8) K/ul RBC 3.26 L (4.70-6.10) M/uL Hgb 10.2 L (14.0-18.0) g/dl Hct 29.9 L (42.0-52.0) % Plt Count 157 (130-400) K/uL Neut # (Auto) 4.55 (1.40-6.50) K/uL Lymph # (Auto) 2.42 (1.2-3.4) K/uL [place] # (Auto) 0.37 (0.11-0.59) K/uL Eos # (Auto) 0.21 (0-0.50) K/uL Baso # (Auto) 0.01 (0-0.2) K/uL Intake and Output 12/17/22 12/18/22 12/18/22 22:59 06:59 14:59 Intake Total 250 / 2863.495 200 / 2863.495 429.167 / 429.167 Output Total 200 / 1576 551 / 1576 276 / 276 Balance 50 / 1287.495 -351 / 1287.495 153.167 / 153.167 Intake: IV 0 / 2293.495 79.167 / 79.167 Insulin Regular 250 units In 0 / 8.495 Sodium Chloride 0.9% 247.5 ml @ 0 UNITS/HR IV .Q0M [facility] Rx#: [id number] Magnesium Sulfate / D5w 1 gm In 79.167 / 79.167 100 ml @ 50 mls/hr IV Q2H [facility] Rx#:[id number] Norepinephrine/D5w 4 mg In 250 0 / 0 ml @ 0 MCG/KG/MIN IV .Q0M [facility] Rx#:[id number] Oral 250 / 570 200 / 570 350 / 350 Output: Urine 200 / 1150 550 / 1150 275 / 275 # Bowel Movements 0 / 1 1 / 1 1 Other: # Unmeasured Voids 1 2 1 Weight 94.2 kg Diagnostic Findings EKG (12-18-2022) sinus with APCs - no ischemic changes noted Medications Administered Current Inpatient Medications Dextrose (Dextrose 50% 50 Ml Syringe) 25 - 50 ml IV UD PRN; Protocol PRN Reason: Hypoglycemia Protocol Stop: 01/15/23 16:28 Enoxaparin Sodium (Enoxaparin Inj 40 Mg/0.4 Ml Syr) 40 mg SQ Q24H [facility] Stop: 01/17/23 11:59 Last Admin: 12/18/22 13:36 Dose: 40 mg Glucagon (Glucagon For Inj 1 Mg Vial) 1 mg SQ UD PRN; Protocol PRN Reason: Hypoglycemia Protocol Stop: 01/15/23 16:28 Glucose (Glucose 10 Tab/Tube) 4 - 8 tab PO UD PRN; Protocol PRN Reason: Hypoglycemia Treatment Stop: 01/15/23 16:28 Glucose (Glucose 40% Gel 15 Gm Tube) 15 - 30 gm PO UD PRN; Protocol PRN Reason: Hypoglycemia Protocol Stop: 01/15/23 16:28 Magnesium Sulfate/Dextrose (Magnesium Sulfate / D5w) 1 gm in 100 mls @ 50 mls/hr IV Q2H [facility] Stop: 12/18/22 15:29 Last Admin: 12/18/22 13:37 Dose: 50 mls/hr Insulin Aspart (Insulin Aspart Per Unit Charge) 0 units SC ACHS [facility] Stop: 01/16/23 16:29 Last Admin: 12/18/22 12:01 Dose: 5 units Insulin Glargine (Lantus Per Unit Charge) 12 units SC QAM [facility] Stop: 01/17/23 08:59 Last Admin: 12/18/22 09:23 Dose: 12 units Midodrine (Midodrine Hcl 10 Mg Tab) 10 mg PO BID@0800,1700 [facility] Stop: 01/17/23 16:59 Miscellaneous (Carbohydrates For Hypoglycemia ) 15 - 30 gm PO UD PRN PRN Reason: Hypoglycemia Protocol Stop: 01/15/23 16:28 Miscellaneous Information (Pharmacy Glycemic Mgmt Consult) 1 each N/A UD PRN PRN Reason: Consult Stop: 01/16/23 09:44
--- NOTE | 2022-12-18 17:52 | Electrocardiogram Report ---
Test Reason : Blood Pressure : / mmHG Vent. Rate : 055 BPM Atrial Rate : 055 BPM P-R Int : 184 ms QRS Dur : 074 ms QT Int : 412 ms P-R-T Axes : 058 054 021 degrees QTc Int : 394 ms Sinus bradycardia with Premature atrial complexes Otherwise normal ECG When compared with ECG of 16-DEC-2022 12:59, Premature atrial complexes are now Present Vent. rate has decreased BY 39 BPM Confirmed by Michael Dean ([id number]) on 12/18/2022 5:52:09 PM Referred By: REFERRED SELF Confirmed By:Qasim Dean
[2022-12-19 06:01] LABS: Basophils # (auto) 0.01 K/uL (0-0.2); Basophils % (auto) 0.2 %; Eosinophils # (auto) 0.24 K/uL (0-0.50); Hematocrit (blood only) 28.6 % (42.0-52.0); Hemoglobin 9.7 g/dl (14.0-18.0); Immature Granulocytes # (auto) 0.03 K/uL (0.01-0.20); Immature Granulocytes % (auto) 0.5 %; Lymphocytes # (auto) 2.25 K/uL (1.2-3.4); Lymphocytes % (auto) 37.4 %; Mean Corpuscular Hgb Conc 33.9 g/dL (32.0-36.0); Mean Corpuscular Volume 91.4 fL (80.0-100.0); Monocytes # (auto) 0.34 K/uL (0.11-0.59); Monocytes % (auto) 5.6 %; Neutrophils # (auto) 3.15 K/uL (1.40-6.50); Neutrophils % (auto) 52.3 %; Platelet Count 154 K/uL (130-400); RDW Coefficient of Variation 13.2 % (11.5-14.5); RDW Standard Deviation 43.7 fL (36.4-46.3); Red Blood Count 3.13 M/uL (4.70-6.10); White Blood Count 6.02 K/ul (4.8-10.8)
[2022-12-19 06:11] LABS: BUN Creatinine Ratio 18.9 (10-20); Calcium 8.3 mg/dl (8.6-10.3); Creatinine Clr Calc Pharmacy 76.1 ml/min; Est GFR (African American) 72.7 ml/min; Est GFR (Non-African American) 62.7 ml/min; Magnesium 1.7 mg/dl (1.7-2.4); Potassium 4.3 mmol/L (3.5-5.1)
--- NOTE | 2022-12-19 07:40 | Cardiology Progress Note ---
Date of Service December 19, 2022 Assessment & Plan (1) Mobitz (type) II atrioventricular block: Plan Plan 57 yo man presenting with pruritus/hives Dx: Anaphylaxis Consult: Mobitz Type II on telemetry * Pt with longstanding Hx of DMII * On multi-drug regimen for DM * Recently has tirzepatide added recently. 1st dose of tirzepatide on 12/14. * Noted to have pruritis + hives + diaphoresis * Rx with Histamine blockers + Epinephrine in the field * Pt treated with Steroids + Norepinephrine + IV Fluids * Noted to have NOLBERTO + Hyperkalemia * NOLBERTO and Hyperkalemia (RESOLVED) * Transient pressor support * Continuous infusion of Insulin started * Check ECHOcardiogram - ordered and PENDING * Check TSH - PENDING * Check Lyme Titers * Not on sukhjinder agents * No repeat bouts of Mobitz II * No angina * No pre or delgado syncope * K+ goal 4.5-5 * Mag goal >2 * MAP is about 80 mmHg * Midodrine (OFF) * Consider outpt ZioPatch if there is no recurrence in [facility] Admission and Anticipated Discharge Date Admission Date: December 16, 2022 Subjective Events overnight: * No Mobitz II on telemetry * No Pauses Subjective: * No complaints * No sx of pre or delgado syncope Review of Systems Review of Systems: All systems reviewed & are unremarkable except as noted in HPI & below Physical Exam Physical Exam: Overweight man in NAD JVP 14 cmH20 S1S2 Soft 2/6 systolic murmur CTA B No C/C - trace edema Warm extremities Results & Data Vital Signs (Past 12 Hours) Vital Signs Temp Pulse Pulse Resp BP BP Pulse Ox 12/19/22 07:14 36.6 C 70 20 107/67 96 12/19/22 03:38 36.6 C 66 17 94/45 L 94 12/19/22 00:14 60 12/18/22 23:16 36.5 C 20 93/57 L 94 O2 Del Method 12/19/22 07:14 Room Air 12/19/22 03:38 Room Air 12/19/22 00:14 12/18/22 23:16 Room Air Laboratory Results CBC 12/19/22 Range/Units 05:23 WBC 6.02 (4.8-10.8) K/ul RBC 3.13 L (4.70-6.10) M/uL Hgb 9.7 L (14.0-18.0) g/dl Hct 28.6 L (42.0-52.0) % Plt Count 154 (130-400) K/uL Neut # (Auto) 3.15 (1.40-6.50) K/uL Lymph # (Auto) 2.25 (1.2-3.4) K/uL [place] # (Auto) 0.34 (0.11-0.59) K/uL Eos # (Auto) 0.24 (0-0.50) K/uL Baso # (Auto) 0.01 (0-0.2) K/uL Comprehensive Metabolic Panel 12/19/22 Range/Units 05:23 Sodium 141 (136-145) mmol/L Potassium 4.3 (3.5-5.1) mmol/L Chloride 113 H (98-107) mmol/L Carbon Dioxide 25 (21-32) mmol/L BUN 24 H (6-23) mg/dl Creatinine 1.27 (0.6-1.4) mg/dl Glucose 83 (70-99(Fasting)) mg/dl Calcium 8.3 L (8.6-10.3) mg/dl Intake and Output 12/18/22 12/19/22 12/19/22 22:59 06:59 14:59 Intake Total 340 / 769.167 Output Total 100 / 376 475 / 475 Balance 240 / 393.167 -475 / -475 Intake: IV 100 / 179.167 Magnesium Sulfate / D5w 1 gm In 100 / 179.167 100 ml @ 50 mls/hr IV Q2H [facility] Rx#:[id number] Oral 240 / 590 Output: Urine 100 / 375 475 / 475 Medications Administered Current Inpatient Medications Dextrose (Dextrose 50% 50 Ml Syringe) 25 - 50 ml IV UD PRN; Protocol PRN Reason: Hypoglycemia Protocol Stop: 01/15/23 16:28 Enoxaparin Sodium (Enoxaparin Inj 40 Mg/0.4 Ml Syr) 40 mg SQ Q24H [facility] Stop: 01/17/23 11:59 Last Admin: 12/18/22 13:36 Dose: 40 mg Glucagon (Glucagon For Inj 1 Mg Vial) 1 mg SQ UD PRN; Protocol PRN Reason: Hypoglycemia Protocol Stop: 01/15/23 16:28 Glucose (Glucose 10 Tab/Tube) 4 - 8 tab PO UD PRN; Protocol PRN Reason: Hypoglycemia Treatment Stop: 01/15/23 16:28 Glucose (Glucose 40% Gel 15 Gm Tube) 15 - 30 gm PO UD PRN; Protocol PRN Reason: Hypoglycemia Protocol Stop: 01/15/23 16:28 Insulin Aspart (Insulin Aspart Per Unit Charge) 0 units SC ACHS [facility] Stop: 01/16/23 16:29 Last Admin: 12/19/22 07:43 Dose: 6 units Insulin Glargine (Lantus Per Unit Charge) 10 units SC QAM [facility] Stop: 01/18/23 08:59 Midodrine (Midodrine Hcl 10 Mg Tab) 10 mg PO BID@0800,1700 [facility] Stop: 01/17/23 16:59 Last Admin: 12/19/22 07:43 Dose: 10 mg Miscellaneous (Carbohydrates For Hypoglycemia ) 15 - 30 gm PO UD PRN PRN Reason: Hypoglycemia Protocol Stop: 01/15/23 16:28 Miscellaneous Information (Pharmacy Glycemic Mgmt Consult) 1 each N/A UD PRN PRN Reason: Consult Stop: 01/16/23 09:44
[2022-12-19] MEDS: INSULIN ASPART PER UNIT CHARGE SC SCH ×2 (07:43→11:54)
[2022-12-19] MEDS: MIDODRINE HCL 10 MG TAB PO SCH (07:43)
[2022-12-19] MEDS ORDERED: LANTUS PER UNIT CHARGE SC SCH (09:00)
[2022-12-19] MEDS ORDERED: diphenhydrAMINE Capsule 25 MG CAP PO PRN (09:16)
[2022-12-19] MEDS ORDERED: LEVOTHYROXINE SODIUM 100 MCG TABLET PO SCH (09:20)
[2022-12-19] MEDS ORDERED: ASPIRIN 81 MG ECTAB PO SCH (09:30)
--- NOTE | 2022-12-19 09:30 | Hospitalist Progress Note ---
Date of Service December 19, 2022 Assessment & Plan (1) Anaphylactic shock: Plan: Patient is 57 y/o M with PMH HTN, dyslipidemia, DM II, BLE edema, hypothyroidism presented to ER with c/o hives started the stefan after taking first dose of Mounjaro yesterday. No SOB or angioedema Dizzy, diaphoretic pre-hospital and was given IV Benadryl, IV epinephrine. Upon ER arrival patient noted to have diffuse urticaria and was hypotensive. Was given epinephrine 0.3mg IM, 25mg IV Benadryl, IV Pepcid, IV decadron, 3L NSS. SBPs from 60's up to 80's. Pulse in 90's. No hypoxia, no wheezing. Required additional epinephrine 0.3mg IM and was sent to ICU Benadryl and famotidine were scheduled. Hives have resolved. Additional fluid resuscitation was started and pressor support with Levaquin overnight. Persistent hypotension. Cont holding home lisinopril and Lasix as hypotensive and with NOLBERTO Lactate improved after resuscitation efforts. (2) Mobitz (type) II atrioventricular block: Plan: New transient finding on telemetry. Consulted cardiology. Not on AV sukhjinder blockers. (3) NOLBERTO (acute kidney injury): Plan: Cr: 2.9. Was 1.4 on 12/11/22 after holding metformin, Jardiance, Lasix for one week. Cr: 2.1 on 12/02/22 with prior baseline of 1.0. Improved to 1.8 Hold lisinopril, Lasix, home glycemic agents Nephrology consulted and suspects there may be an element of ATN. BMP in am (4) Neck pain: Plan: Posterior neck pain x 1-2 months Consider imaging/outpatient workup when patient more stable (5) Diabetes mellitus, type II: Plan: A1c: 8.1 on 12/02/22 Glucose: 333 Hold home meds Insulin per glycemic pharmacist. Euglycemic at this time. (6) Hypertension: Plan: Holding home agents while hypotensive. Cont midodrine with wean (7) High cholesterol: Plan: chronic, stable. Cont atorvastatin per home regimen. (8) Hypothyroidism: Plan: chronic, stable. Cont levothyroxine per home regimen. DVT proph: Lovenox Full Code Follows with Dr Regina Marshall for routine care Pt was seen and care coordinated with Dr Tracy. See addendum I spent a total of 60 minutes reviewing notes, outpatient records, labs, medication, coordinating, documenting and providing care for this patient excluding time spent in the performance of separately billed services. DO Joshua [facility] Hospitalist Admission and Anticipated Discharge Date Admission Date: December 16, 2022 Subjective 57 yo M presents with anaphylactic shock after Mounjaro use. Review of Systems Review of Systems: All systems were reviewed and negative except as indicated as above. Physical Exam Physical Exam: CONSTITUTIONAL: WNWD, vitals as above, generally well-appearing, NAD EYES: normal conjunctivae, no scleral icterus ENT: external ear and nose normal, MMM NECK: trachea midline, MMM RESPIRATORY: clear to auscultation bilaterally, no crackles, rales or wheezes, normal respiratory effort CARDIOVASCULAR: regular rate and rhythm, S1 and 2 heard without murmurs, gallops or rubs, no JVD, no peripheral edema CHEST: inspection of chest was normal GASTROINTESTINAL: soft, nontender, ND, no guarding MUSCULOSKELETAL: strength 5/5 throughout, head is normocephalic and atraumatic SKIN: warm and dry, no rashes NEUROLOGIC: CN 2-12 grossly intact, no sensory deficit, normal cognition, normal speech, no tremor PSYCHIATRIC: alert cooperative and oriented to person, place and time. Euthymic mood, makes good eye contact, language grossly intact, recent and remote memory grossly intact. Results & Data Results & Data Vital Signs (Past 12 Hours) Vital Signs Temp Pulse Pulse Resp BP BP Pulse Ox 12/19/22 08:00 60 12/19/22 07:14 36.6 C 70 20 107/67 96 12/19/22 03:38 36.6 C 66 17 94/45 L 94 12/19/22 00:14 60 12/18/22 23:16 36.5 C 20 93/57 L 94 O2 Del Method 12/19/22 08:00 12/19/22 07:14 Room Air 12/19/22 03:38 Room Air 12/19/22 00:14 12/18/22 23:16 Room Air Laboratory Results Short CBC 12/19/22 Range/Units 05:23 WBC 6.02 (4.8-10.8) K/ul Hgb 9.7 L (14.0-18.0) g/dl Hct 28.6 L (42.0-52.0) % Plt Count 154 (130-400) K/uL BMP 12/19/22 05:23 Sodium 141 Potassium 4.3 Chloride 113 H Carbon Dioxide 25 BUN 24 H Creatinine 1.27 Glucose 83 Calcium 8.3 L Medications Administered Current Inpatient Medications Aspirin (Aspirin 81 Mg Ectab) 81 mg PO DAILY [facility] Stop: 01/18/23 09:29 Atorvastatin Calcium (Atorvastatin 40 Mg Tab) 40 mg PO PM [facility] Stop: 01/18/23 20:59 Dextrose (Dextrose 50% 50 Ml Syringe) 25 - 50 ml IV UD PRN; Protocol PRN Reason: Hypoglycemia Protocol Stop: 01/15/23 16:28 Diphenhydramine HCl (Diphenhydramine Capsule 25 Mg Cap) 25 mg PO Q8H PRN PRN Reason: Itching Stop: 01/18/23 09:15 Enoxaparin Sodium (Enoxaparin Inj 40 Mg/0.4 Ml Syr) 40 mg SQ Q24H [facility] Stop: 01/17/23 11:59 Last Admin: 12/18/22 13:36 Dose: 40 mg Glucagon (Glucagon For Inj 1 Mg Vial) 1 mg SQ UD PRN; Protocol PRN Reason: Hypoglycemia Protocol Stop: 01/15/23 16:28 Glucose (Glucose 10 Tab/Tube) 4 - 8 tab PO UD PRN; Protocol PRN Reason: Hypoglycemia Treatment Stop: 01/15/23 16:28 Glucose (Glucose 40% Gel 15 Gm Tube) 15 - 30 gm PO UD PRN; Protocol PRN Reason: Hypoglycemia Protocol Stop: 01/15/23 16:28 Insulin Aspart (Insulin Aspart Per Unit Charge) 0 units SC ACHS [facility] Stop: 01/16/23 16:29 Last Admin: 12/19/22 07:43 Dose: 6 units Insulin Glargine (Lantus Per Unit Charge) 10 units SC QAM [facility] Stop: 01/18/23 08:59 Last Admin: 12/19/22 08:43 Dose: 10 units Levothyroxine Sodium (Levothyroxine Sodium 100 Mcg Tablet) 100 mcg PO DAILYBB [facility] Stop: 01/18/23 09:19 Miscellaneous (Carbohydrates For Hypoglycemia ) 15 - 30 gm PO UD PRN PRN Reason: Hypoglycemia Protocol Stop: 01/15/23 16:28 Miscellaneous Information (Pharmacy Glycemic Mgmt Consult) 1 each N/A UD PRN PRN Reason: Consult Stop: 01/16/23 09:44
[2022-12-19 10:19] LABS: Thyroid Stimulating Hormone 8.892 uIu/ml (0.300-4.500)
[2022-12-19 10:27] LABS: Lyme Ab IgG w/WB Rflx Negative (Negative); Lyme Ab IgM w/WB Rflx Negative (Negative)
[2022-12-19 10:54] LABS: T4 Free Thyroxine 0.91 ng/dl (0.61-1.60)
[2022-12-19] MEDS: ENOXAPARIN INJ 40 MG/0.4 ML SYR SQ SCH (13:12)
--- NOTE | 2022-12-19 14:23 | Discharge Summary ---
Discharge Summary Date of Service December 19, 2022 Admission HPI Per Admitting Provider Patient is 57 y/o M with PMH HTN, dyslipidemia, DM II, BLE edema, hypothyroidism presented to ER with c/o hives. History obtained from patient as well as outpatient chart review. Patient has been on Ozempic since 02/2023 however reports that pharmacy was unable to get medication in stock so he was started on Mounjaro. Took first dose of Mounjaro last evening. States around midnight started with diffuse pruritus and hives. He states took 50mg Benadryl orally. This morning still had hives and itching. This morning he went to . States as was travelling to [place] noticed increased hives. Reports that once arrived he went to first aid tent and was given 50mg Benadryl orally. Patient states started to walk around and became diaphoretic and dizzy. EMS was called. EMS reported BP: 67/42. It is reported patient was given 50mg IV Benadryl, IV epinephrine and IVF. Upon ER arrival patient noted to have diffuse urticaria and was hypotensive. Was given epinephrine 0.3mg IM, 25mg IV Benadryl, 3L NSS. SBPs from 60's up to 80's. Patient denies any wheezing, SOB, chest pain, nausea, vomiting, abdominal pain, edema of lips or tongue, dysphagia. Patient also concerned about posterior neck pain for past 1-2 months. Has been taking Tylenol daily for 1 month for pain with limited relief. Denies heavy lifting or injury. reports chronic BLE edema for which he is on Lasix. Patient denies any increased edema. He had outpatient labs 12/02/22 and had creatinine of 2.1. His metformin, Jardiance, Lasix were held for one week. Patient reports resumed me dications on 12/12/22. Outpatient chart reviewed and 12/11/22 Cr: 1.4. Denies fever/chills, diarrhea, constipation, DIETRICH, syncope, vision changes, orthopnea, palpitations, cough, sore throat, choking, otalgia, rhinorrhea, abdominal pain, paresthesias, extremity weakness, rashes, urinary symptoms. Principal Dx & Hospital Course #1 = Principal Diagnosis (1) Anaphylactic shock: (2) Mobitz (type) II atrioventricular block: (3) NOLBERTO (acute kidney injury): (4) Neck pain: (5) Diabetes mellitus, type II: (6) Hypertension: (7) High cholesterol: (8) Hypothyroidism: Updated Medication List Medication Instructions Recorded Confirmed Type aspirin 81 mg tablet,delayed 81 mg PO DAILY 12/16/22 12/16/22 History release atorvastatin 40 mg tablet 40 mg PO PM 12/16/22 12/16/22 History empagliflozin 25 mg tablet 25 mg PO DAILY 12/16/22 12/16/22 History (Jardiance) furosemide 40 mg tablet 40 mg PO BID 12/16/22 12/16/22 History glyburide 5 mg tablet 10 mg PO BIDM 12/16/22 12/16/22 History levothyroxine 100 mcg tablet 100 mcg PO DAILY 12/16/22 12/16/22 History lisinopril 20 mg tablet 20 mg PO DAILY 12/16/22 12/16/22 History metformin 1,000 mg tablet 1,000 mg PO BID 12/16/22 12/16/22 History potassium chloride 20 mEq 20 meq PO DAILY 12/16/22 12/16/22 History tablet,extended release(part/cryst) repaglinide 2 mg tablet 4 mg PO TIDM 12/16/22 12/16/22 History tirzepatide 12.5 mg/0.5 mL 12.5 mg subcut WK 12/16/22 12/16/22 History subcutaneous pen injector (Mounjaro) magnesium oxide 400 mg (241.3 mg 400 mg PO BID #60 tabs 12/19/22 Rx magnesium) tablet Hospital Stay Data Consultations 12/16/22 14:45 ED Decision to Admit Stat 12/16/22 15:18 Consult Area Captain Stat 12/16/22 17:06 Consult Area Captain Routine 12/16/22 17:21 Consult Nephrology Routine 12/18/22 13:05 Consult Cardiology Routine Pending Results Patient Have Any Pending Studies at Discharge: No Discharge Instructions Given to Patient (Per Discharging Provider) Please take all medications as instructed on discharge list below. You were treated for a severe allergic reaction in response to Mounjaro injection which is a GLP-1 agonist. It is not recommended that you resume this or other drug in the same class (Ozempic) unless this is done under the supervision of an programmer numerical control. If additional diabetic medications are required to get you to goal A1C, drugs from a different class of medications are recommended. It is recommended that you follow-up with an hydramatic specialist to ensure there is no other underlying contributing factors to your allergic reaction. Dr. Roxie Dang has your information and his staff will be contacting you to set up followup. It is not necessary that you keep an Epi-Pen on hand at this time as long as you avoid this medication. 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 It is recommended that you follow-up with your primary car physician at the date and time scheduled above to ensure you are still doing well after returning home, including to check your heart rate and blood pressure. Consideration for event monitor is recommended to investigate further why you went into intermittent heart block in the hospital. No clear cause was found. It was a pleasure taking care of you! Please call if you have any questions or problems. You can reach a [facility] hospitalist on duty at [facility] 24 hours a day by calling [phone]. Take care of yourself. Uyen Tracy, DO [facility] Hospitalist
[2022-12-19] MEDS ORDERED: MAGNESIUM OXIDE 400 MG TAB PO SCH (21:00)
[2022-12-19] MEDS ORDERED: ATORVASTATIN 40 MG TAB PO SCH (21:00)
== END 2022-12-19 15:29 | disposition home or self-care (01) | DRG 916 ==
LOC: ED 12:54 → 1E 16:16 → 2S 12-17 19:02